=== PATIENT | male | born 1975 | race Caucasian/White ===

== ENCOUNTER 2019-08-16 13:18 | Inpatient (IN) | payer BC ==
[2019-08-16 17:08] VITALS: BMI 22.1
[2019-08-16] MEDS ORDERED: ACETAMINOPHEN TAB 325 MG TAB PO PRN (17:33)
[2019-08-16] MEDS ORDERED: NALOXONE 0.4 MG/ML 1 ML VIAL IV PRN (17:33)
[2019-08-16 18:07] LABS: Glucose,Whole Blood 100 mg/dL (75-99)
--- NOTE | 2019-08-16 18:47 | CT ---
EXAMINATION TYPE: CT abdomen pelvis w con DATE OF EXAM: 08/16/2019 COMPARISON: None HISTORY: Pelvic pain, nausea. Umbilical hernia, possible bowel obstruction. CT DLP: 729 mGycm Automated exposure control for dose reduction was used. TECHNIQUE: Helical acquisition of images was performed from the lung bases through the pelvis. CONTRAST: Performed with Oral Contrast and with IV Contrast, patient injected with 100 mL of Isovue 300. FINDINGS: Lung bases are clear. There is no pleural effusion. Heart size is normal. There is no pericardial eff usion. There are small less than 1 cm cyst in the liver. Gallbladder appears normal. Spleen appears normal. There is no pancreatic mass. Stomach is intact. There is no adrenal mass. Kidneys show satisfactory contrast opacification. There is no hydronephrosi s. There is broad-based umbilical hernia that contains omental fat with minimal fat stranding. The op ening is 2.5 cm. Bladder is almost empty. There is no evidence of a pelvic mass. There is no inguinal hernia. There is no free fluid in the pelvis. Appendix is not definitely seen. There is no sign of thickened appendix . Lumbar vertebra have normal alignment. Posterior elements are intact. There is no compression fract ure. Bony pelvis is intact. IMPRESSION: THERE IS UMBILICAL HERNIA WITH SOME INCARCERATED OMENTAL FAT AND MINIMAL FAT STRANDING THAT COULD REL ATE TO SOME MILD INFLAMMATORY REACTION. OTHERWISE NEGATIVE EXAM.
[2019-08-16 19:07] LABS: Basophils # (A) 0.1 k/uL (0-0.2); Basophils % (A) 1 %; Eosinophils # (A) 0.2 k/uL (0-0.7); Eosinophils % (A) 3 %; HCT 40.6 % (39.0-53.0); HGB 13.9 gm/dL (13.0-17.5); Lymphocytes # (A) 1.5 k/uL (1.0-4.8); Lymphocytes % (A) 27 %; MCH 31.6 pg (25.0-35.0); MCHC 34.3 g/dL (31.0-37.0); MCV 92.2 fL (80.0-100.0); Monocytes # (A) 0.2 k/uL (0-1.0); Monocytes % (A) 4 %; Neutrophils # (A) 3.3 k/uL (1.3-7.7); Neutrophils % (A) 62 %; Platelet Count 219 k/uL (150-450); RDW 12.5 % (11.5-15.5); WBC 5.3 k/uL (3.8-10.6)
[2019-08-16 19:16] LABS: ALT 18 U/L (21-72); AST 17 U/L (17-59); African American GFR (CKD) >90 (>60 ml/min/1.73 sqM); Albumin 3.8 g/dL (3.5-5.0); Alkaline Phosphatase 61 U/L (38-126); Anion Gap 7 mmol/L; Blood Urea Nitrogen 13 mg/dL (9-20); Calcium 9.1 mg/dL (8.4-10.2); Carbon Dioxide 28 mmol/L (22-30); Chloride 100 mmol/L (98-107); Glucose 116 mg/dL (74-99); Potassium 3.7 mmol/L (3.5-5.1); Sodium 135 mmol/L (137-145); Total Bilirubin 0.3 mg/dL (0.2-1.3); Total Protein 6.5 g/dL (6.3-8.2)
[2019-08-16] MEDS: SODIUM CHLORIDE 0.9% 1,000 ML IV SCH ×2 (21:41→23:36)
[2019-08-17] MEDS: SODIUM CHLORIDE 0.9% 1,000 ML IV SCH (09:14)
[2019-08-17] MEDS: KETOROLAC 30 MG/ML 1 ML VIAL IVP PRN (09:14)
[2019-08-17] MEDS ORDERED: fentaNYL PCA 500 MCG/50 ML BAG IV PRN (09:24)
[2019-08-17] MEDS ORDERED: NALOXONE 0.4 MG/ML 1 ML VIAL IV PRN (09:24)
[2019-08-17] MEDS ORDERED: LACTULOSE 20 GM/30 ML CUP PO ONE (09:30)
[2019-08-17] MEDS: DOCUSATE 100 MG CAP PO SCH ×2 (09:40→19:58)
[2019-08-17] MEDS: MAGNESIUM HYDROXIDE 2,400 MG/10 ML CUP PO SCH ×3 (09:41→19:59)
[2019-08-17] MEDS ORDERED: ACETAMINOPHEN IV (For NPO) 1,000 MG in EMPTY BAG 1 BAG IVPB ONE (10:00)
[2019-08-17] MEDS ORDERED: ONDANSETRON 4 MG/2 ML VIAL IVP PRN (10:10)
[2019-08-17] MEDS ORDERED: diphenhydrAMINE 50 MG/ML 1 ML VIAL IVP PRN (10:10)
[2019-08-17] MEDS: METOCLOPRAMIDE 5 MG/ML 2 ML VIAL IVP SCH ×2 (11:59→17:23)
--- NOTE | 2019-08-17 13:07 | P.GSHP ---
History of Present Illness H&P Date: 08/16/19 CHIEF COMPLAINT: Bowel obstruction HISTORY OF PRESENT ILLNESS: The patient is a 43 year old male who presents to me first time in consultation after having severe abdominal pain along the periumbilical area from a prior open umbilical hernia repair performed at [facility] 2+ years ago. He reports inability to pass flatus including severe abdominal distention and abdominal pain ongoing for the last 2-3 days. In general, he reports recurrent ventral hernia over the last 2-3 months. It affects his activities of daily living. "The pain is unbearable." He takes medicinal marijuana for pain control. He reports intermittent nausea and vomiting. Reports severe constipation secondary to his umbilical hernia lasting over 3+ weeks since his last bowel movement. He denies any alleviating factors other medicinal marijuana. Reports difficulty with movement and lifting was exacerbates his abdominal pain. No reports of blood in stools. PAST MEDICAL HISTORY: See list. PAST SURGICAL HISTORY: See list. MEDICATIONS: See list. ALLERGIES: See list. SOCIAL HISTORY: See list. FAMILY HISTORY: See list. REVIEW OF ORGAN SYSTEMS: CONSTITUTIONAL: No fevers or chills. Has unintentional weight loss over 10 pounds in 5 months. EYES: Denies any trouble with vision. No glasses. HEENT: No difficulties with hearing. No nosebleeds. No difficulty swallowing. RESPIRATORY: Denies pneumonia. Denies any troubles with breathing or dyspnea on exertion. CARDIOVASCULAR: Denies any chest pain, palpitations, or recent heart attacks. GASTROINTESTINAL: Denies fatty food intolerance. Has in bowel habits and gas bloat. Has severe constipation. GENITOURINARY: Denies any blood in urine or increased urinary frequency. NEUROLOGICAL: Denies any numbness or tingling along the distal extremities. No seizure disorders or headaches. MUSCULOSKELETAL: Has back pain, stiffness or joint arthritis. SKIN: No current skin cancer. No rash. PSYCHIATRIC: Denies current depression or suicidal thoughts. ENDOCRINE: Denies current thyroid disorders. Denies any blood sugar glucose intolerance. HEME/LYMPHATIC: Denies any lumps and bumps around the neck. No recent deep venous thrombosis. ALLERGY/IMMUNOLOGY: No immunoglobulin therapy. No immune deficiencies. BREAST: Denies current breast lumps, pain or nipple discharge. PHYSICAL EXAM: VITALS: Reviewed CONSTITUTIONAL: Well developed and in no acute distress. EYES: Conjuctivae without sclera icterus. Pupils are equally round and reactive to light. Extraocular movements grossly intact. HEAD, EARS, NOSE, THROAT: Moist buccal mucosa. Head is atraumatic, normocephalic. Hears conversational speech. No nasal drainage. NECK: Supple. No JV distention. No thyroidomegaly. RESPIRATORY: Non-labored respirations and equal bilateral excursions. No gross wheezes. CARDIOVASCULAR: Regular rate and rhythm. Extremities without moderate edema. Palpable 2+ radial pulses. ABDOMEN: Soft. Present distention. Tender periumbilical with transverse incision with recurrent incarcerated ventral hernia. No peritonitis LYMPH: No neck lymphadenopathy. No axillary lymphadenopathy. MUSCULOSKELETAL: Gait within normal limits. Range of motion bilateral upper extremities within normal limits. Nail and fingers with good capillary refill. SKIN: Warm and well perfused with good skin turgor. NEUROLOGIC: Cranial nerves I through XII grossly intact. Sensation upper and extremities intact. No focal or lateralizing signs. PSYCH: Appropriate affect. Alert and oriented to person, place and time. Displays appropriate insight. ASSESSMENT: 1. Recurrent ventral hernia with bowel obstruction PLAN: 1. Recommend immediate full inpatient admission to the hospital for bowel obstruction and recurrent ventral hernia 2. Will need CT of the abdomen and pelvis for involvement of small bowel with recurrent hernia 3. He is increased risk for perioperative complications with acute bowel obstruction including recurrent hernia and active marijuana use 4. Twelve-lead EKG advised 5. Full inpatient hospitalization anticipated more than 2 nights 6. Ventral hernia repair while inpatient advice for recurrent ventral hernia with bowel obstruction 7. Recommend CBC, CMP labs 8. DVT prophylaxis 9. Patient is being sent from the office to the hospital for direct inpatient admission Thank you for this kind consultation. Past Medical History Past Medical History: Hypertension History of Any Multi-Drug Resistant Organisms: None Reported Past Surgical History: Hernia Repair Past Anesthesia/Blood Transfusion Reactions: No Reported Reaction Past Psychological History: Anxiety Smoking Status: Former smoker - Past Family History Mother Family Medical History: CVA/TIA Additional Family Medical History / Comment(s): Aorta transplant Father Family Medical History: Myocardial Infarction ([place]) Medications and Allergies Home Medications Medication Instructions Recorded Confirmed Type DULoxetine HCL [Cymbalta] 60 mg PO DAILY 08/16/19 08/16/19 History Omeprazole 20 mg PO DAILY 08/16/19 08/16/19 History Allergies Allergy/AdvReac Type Severity Reaction Status Date / Time hydrocodone [From Vicodin] Allergy Rash/Hives Verified 08/16/19 18:53 codeine AdvReac Nausea Verified 08/16/19 18:53 Surgical - Exam Vital Signs Temp Pulse Resp BP Pulse Ox 97.8 F 87 18 123/77 98 08/16/19 16:47 08/16/19 16:47 08/16/19 16:47 08/16/19 16:47 08/16/19 16:47 Results - Labs 08/16/19 18:37 08/16/19 18:37 Abnormal Lab Results - Last 24 Hours (Table) 08/16/19 08/16/19 Range/Units 18:05 18:37 Sodium 135 L (137-145) mmol/L Glucose 116 H (74-99) mg/dL POC Glucose (mg/dL) 100 H (75-99) mg/dL ALT 18 L (21-72) U/L Diabetes panel 08/16/19 Range/Units 18:37 Sodium 135 L (137-145) mmol/L Potassium 3.7 (3.5-5.1) mmol/L Chloride 100 (98-107) mmol/L Carbon Dioxide 28 (22-30) mmol/L BUN 13 (9-20) mg/dL Creatinine 0.82 (0.66-1.25) mg/dL Glucose 116 H (74-99) mg/dL Calcium 9.1 (8.4-10.2) mg/dL AST 17 (17-59) U/L ALT 18 L (21-72) U/L Alkaline Phosphatase 61 (38-126) U/L Total Protein 6.5 (6.3-8.2) g/dL Albumin 3.8 (3.5-5.0) g/dL Calcium panel 08/16/19 Range/Units 18:37 Calcium 9.1 (8.4-10.2) mg/dL Albumin 3.8 (3.5-5.0) g/dL Pituitary panel 08/16/19 Range/Units 18:37 Sodium 135 L (137-145) mmol/L Potassium 3.7 (3.5-5.1) mmol/L Chloride 100 (98-107) mmol/L Carbon Dioxide 28 (22-30) mmol/L BUN 13 (9-20) mg/dL Creatinine 0.82 (0.66-1.25) mg/dL Glucose 116 H (74-99) mg/dL Calcium 9.1 (8.4-10.2) mg/dL Adrenal panel 08/16/19 Range/Units 18:37 Sodium 135 L (137-145) mmol/L Potassium 3.7 (3.5-5.1) mmol/L Chloride 100 (98-107) mmol/L Carbon Dioxide 28 (22-30) mmol/L BUN 13 (9-20) mg/dL Creatinine 0.82 (0.66-1.25) mg/dL Glucose 116 H (74-99) mg/dL Calcium 9.1 (8.4-10.2) mg/dL Total Bilirubin 0.3 (0.2-1.3) mg/dL AST 17 (17-59) U/L ALT 18 L (21-72) U/L Alkaline Phosphatase 61 (38-126) U/L Total Protein 6.5 (6.3-8.2) g/dL Albumin 3.8 (3.5-5.0) g/dL Assessment and Plan (1) Small bowel obstruction Current Visit: Yes Status: Acute Code(s): K56.609 - UNSP INTESTNL OBST, UNSP TO PARTIAL VERSUS COMPLETE OBST SNOMED Code(s): 844976439 (2) Recurrent ventral hernia with obstruction Current Visit: Yes Status: Acute Code(s): K43.0 - INCISIONAL HERNIA WITH OBSTRUCTION, WITHOUT GANGRENE SNOMED Code(s): 040217466 (3) Chronic pain syndrome Current Visit: Yes Status: Acute Code(s): G89.4 - CHRONIC PAIN SYNDROME SNOMED Code(s): 081761787 (4) Marijuana use Current Visit: Yes Status: Acute Code(s): F12.90 - CANNABIS USE, UNSPECIFIED, UNCOMPLICATED SNOMED Code(s): 518010478
--- NOTE | 2019-08-17 15:53 | P.PN ---
Subjective Progress Note Date: 08/17/19 CHIEF COMPLAINT: Bowel obstruction HISTORY OF PRESENT ILLNESS: The patient is a 43 year old male who presented to the office yesterday with intractable abdominal pain including features of small bowel obstruction as well as recurrent incarcerated ventral hernia. He reports his disappointment in his nursing care from overnight where he was misinformed regarding the date of the surgery including poor pain management and management for nausea as well. I was not notified overnight regarding any of his concerns. This morning, he is accompanied by his where he was seeking to leave AGAINST MEDICAL ADVICE. Myself including his present nurse and nurse practitioner were at bedside to hear all of his concerns. I did review his clinical findings with his computed tomography scan. Additionally, patient reports poor pain control as he has intolerance to oral pain tablets. He was given the option for discharge with outpatient follow-up versus remain inpatient and undergo surgery for repair of his incarcerated ventral hernia. Separately, he reports severe constipation. He also reports medicinal marijuana to control his pain. ROS: Denies any current nausea or vomiting. Denies chest pain. No shortness of breath. PHYSICAL EXAM: VITALS: Reviewed CONSTITUTIONAL: Well developed and in no acute distress. EYES: Conjuctivae without sclera icterus. Pupils are equally round and reactive to light. Extraocular movements grossly intact. HEAD, EARS, NOSE, THROAT: Moist buccal mucosa. Head is atraumatic, normocephalic. Hears conversational speech. No nasal drainage. NECK: Supple. No JV distention. No thyroidomegaly. RESPIRATORY: Non-labored respirations and equal bilateral excursions. No gross wheezes. CARDIOVASCULAR: Regular rate and rhythm. Extremities without moderate edema. Palpable 2+ radial pulses. ABDOMEN: Soft. Tender periumbilical without skin changes or peritonitis. MUSCULOSKELETAL: Nail and fingers with good capillary refill. SKIN: Warm and well perfused with good skin turgor. NEUROLOGIC: Cranial nerves I through XII grossly intact. Sensation upper and ex tremities intact. No focal or lateralizing signs. PSYCH: Appropriate affect. Alert and oriented to person, place and time. Displays appropriate insight. LABS: Reviewed. White blood cell count normal. Hemoglobin normal. STUDIES: CT of the abdomen and pelvis independently reviewed demonstrating no large bowel obstruction. Fat-containing ventral hernia identified. No free air. EKG: Normal sinus rhythm. ASSESSMENT: 1. Recurrent ventral hernia 2. Intractable abdominal pain PLAN: 1. He was given options regarding discharge versus inpatient hospitalization as his computed tomography scan confirms no closed loop obstruction and recurrent ventral hernia repair with fat. ADDENDUM: After family discussion, patient opted to continue his hospitalization. He has been placed on cathartics including anesthesia consultation for complex pain management and ventral hernia repair tomorrow Objective - Vital Signs Vital signs: Vital Signs Temp 98.1 F 08/17/19 14:43 Pulse 73 08/17/19 14:43 Resp 16 08/17/19 14:43 BP 101/63 08/17/19 14:43 Pulse Ox 97 08/17/19 14:43 Intake & Output 08/16/19 08/17/19 08/17/19 18:59 06:59 18:59 Intake Total 1500 Output Total 500 Balance -500 1500 Weight 68.039 kg 68.039 kg Intake: Intake, IV Titration 700 Amount Sodium Chloride 0.9% 1, 700 000 ml @ 100 mls/hr IV . Q10H KIRSTIN Rx#:[id number] Oral 800 Output: Urine 500 Other: # Voids 1 3 - Labs CBC & Chem 7: 08/16/19 18:37 08/16/19 18:37 Labs: Abnormal Lab Results - Last 24 Hours (Table) 08/16/19 08/16/19 Range/Units 18:05 18:37 Sodium 135 L (137-145) mmol/L Glucose 116 H (74-99) mg/dL POC Glucose (mg/dL) 100 H (75-99) mg/dL ALT 18 L (21-72) U/L Assessment and Plan (1) Small bowel obstruction Current Visit: Yes Status: Acute Code(s): K56.609 - UNSP INTESTNL OBST, UNSP TO PARTIAL VERSUS COMPLETE OBST SNOMED Code(s): 739563566 (2) Recurrent ventral hernia with obstruction Current Visit: Yes Status: Acute Code(s): K43.0 - INCISIONAL HERNIA WITH OBSTRUCTION, WITHOUT GANGRENE SNOMED Code(s): 166263717 (3) Chronic pain syndrome Current Visit: Yes Status: Acute Code(s): G89.4 - CHRONIC PAIN SYNDROME SNOMED Code(s): 193531712 (4) Marijuana use Current Visit: Yes Status: Acute Code(s): F12.90 - CANNABIS USE, UNSPECIFIED, UNCOMPLICATED SNOMED Code(s): 248063913
[2019-08-18] MEDS: METOCLOPRAMIDE 5 MG/ML 2 ML VIAL IVP SCH ×5 (01:26→23:49)
[2019-08-18] MEDS: SODIUM CHLORIDE 0.9% 1,000 ML IV SCH ×3 (01:28→21:10)
[2019-08-18] MEDS: LACTATED RINGERS 1,000 ML IV SCH (08:05)
[2019-08-18] MEDS: DOCUSATE 100 MG CAP PO SCH ×2 (08:05→21:18)
[2019-08-18] MEDS: MAGNESIUM HYDROXIDE 2,400 MG/10 ML CUP PO SCH ×2 (08:05→21:35)
[2019-08-18] MEDS ORDERED: IV FLUID CONTINUATION 1,000 ML IV ONE (16:24)
[2019-08-18] MEDS ORDERED: DEXAMETHASONE SOD PHOSPHATE 10 MG/ML 1 ML VIAL IV ONE (16:47)
--- NOTE | 2019-08-18 17:05 | P.HPADDEND ---
H&P Addendum H&P Addendum Date: 08/18/19 Benefits and risks of robotic ventral hernia described. All questions addressed. Postoperative pain management also reviewed. We'll proceed with robotic ventral hernia repair
[2019-08-18] MEDS ORDERED: fentaNYL (PF) 50 MCG/ML 2 ML AMP ONE (17:20)
[2019-08-18] MEDS ORDERED: ROCURONIUM BROMIDE 10 MG/ML 10 ML VIAL IV ONE (17:20)
[2019-08-18] MEDS ORDERED: MIDAZOLAM 2 MG/2 ML VIAL ONE (17:20)
[2019-08-18] MEDS ORDERED: GLYCOPYRROLATE 0.2 MG/ML 2 ML VIAL ONE (17:20)
[2019-08-18] MEDS ORDERED: SUCCINYLCHOLINE CHLORIDE 100 MG/5 ML SYR IV ONE (17:20)
[2019-08-18] MEDS ORDERED: NEOSTIGMINE 1 MG/ML 10 ML VIAL ONE (17:20)
[2019-08-18] MEDS ORDERED: HYDROmorphone (PF) 1 MG/ML ONE (17:20)
[2019-08-18] MEDS ORDERED: LIDOCAINE 1% INJ 10MG/ML (20 ML MDV) ONE (17:20)
[2019-08-18] MEDS ORDERED: PROPOFOL 10 MG/ML 20 ML VIAL IV ONE (17:20)
[2019-08-18] MEDS ORDERED: LIDOCAINE 1%-EPI 1:100,000 20 ML VIAL SQ ONE ×2 (17:36→17:51)
[2019-08-18] MEDS ORDERED: LACTATED RINGERS 1,000 ML IV ONE (18:30)
[2019-08-18] MEDS ORDERED: HYDROmorphone 1 MG/ML 1 ML SYRINGE IVP PRN (19:22)
[2019-08-18] MEDS ORDERED: diphenhydrAMINE 50 MG/ML 1 ML VIAL IVP PRN (19:24)
--- NOTE | 2019-08-18 19:30 | P.OP ---
Date of Procedure: 08/18/19 Description of Procedure: SURGEON: VICTOR HUGO SWAIN MD PREOPERATIVE DIAGNOSES: 1. Recurrent incarcerated ventral hernia with bowel obstruction 2. Depressive disorder 3. Gastroesophageal reflux disease POSTOPERATIVE DIAGNOSES: 1. Recurrent incarcerated ventral hernia with bowel obstruction 2. Depressive disorder 3. Gastroesophageal reflux disease OPERATION: 1. Robotic-assisted da Vanna Xi laparoscopic repair of recurrent incarcerated ventral hernia 6-cm with mesh, ventralight ST mesh 11.4 cm ANESTHESIA: General with local ESTIMATED BLOOD LOSS: 5 mL. SPECIMENS: Incarcerated contents recurrent umbilical hernia COMPLICATIONS: None. INDICATIONS: The patient is a 43-year-old male who presents with bowel obstruction including recurrent ventral hernia status post open repair. Surgical intervention with laparoscopic versus robotic and open techniques were reviewed. Placement of mesh was also reviewed. Benefits and risks were thoroughly described. Informed consent was obtained. DESCRIPTION OF PROCEDURE: The patient was brought into the operating room and laid in supine position. After general induction, the abdomen had been prepped and draped in standard sterile fashion. Ioban draping was also placed. Prior to incision, a timeout protocol was confirmed with surgical team regarding the patient's name including procedures to be performed. The robot was primed prior to the procedure. A field block using local anesthetic was placed along hernia site including the proposed port sites. Initial incision was made with an #11 blade along the left upper quadrant. A 0 degree 5 mm laparoscopic trocar entry was performed and insufflated. Three 8 mm ports were placed along the right side abdominal wall under direct localization. The 5-mm port was exchanged for an 12 mm port. Placements of the ports were 15 cm from the target anatomy and 10 cm apart. The da Vanna Xi robot was previously primed, prepped and draped then docked along the right side of the patient. I then sat at the robot Da Vanna Xi console where working arms of the robot including Bovie cautery connected to robotic scissors, vessel sealer, needle taxi driver, and graspers placed by the diploma medical assistant. Incarcerated omental contents was found in the previous ventral hernia repair. Vessel sealer was used to resect the incarcerated tissue. After moderate dissection including lysis of adhesions over 30 minutes, 2 separate distinct defects of 3 cm were found at the incarcerated ventral hernia with total combined of 6 cm defect. The incarcerated tissue was incised and dissected free from the surrounding tissues. A 12 mm port was placed along the left upper quadrant for placement of the mesh and for sutures. The incarcerated contents was reduced as the peritoneal fat was cleaned from the abdominal wall. Next, hemostasis was checked with cautery. The hernia defect was oversewn using #1 2-0 VLOC with fascial imbrication x 3. Next, ventralight ST mesh 11.4 cm was placed with the rough side towards the abdominal wall. 2-0 VLOC 12 inch sutures were used to fixate the mesh. A final endoscopic imaging was obtained. All instruments and pneumoperitoneum were evacuated from the abdominal cavity. The da Vanna Xi robot was undocked from the patient. I re-scrubbed into the case for closure of incisions. The fascia of the 12-mm port was probed and less than 8-mm in size. The incisions were reapproximated using 4-0 Monocryl in an interrupted subcuticular fashion. Liquid glue was applied to the skin after cleansing the skin with normal saline and dilute hydrogen peroxide. An abdominal binder was placed. An umbilical dressing was placed prior. At the end of the procedure, needle, sponge, and instrument count had been verified correct by shipping technician. The patient was taken to the postanesthesia care unit in stable condition. FINDINGS: 1. Recurrent incarcerated ventral hernia
[2019-08-18] MEDS: HYDROmorphone 0.5 MG/0.5 ML SYRINGE IVP PRN ×4 (19:31→20:17)
--- NOTE | 2019-08-18 19:33 | P.PN ---
Progress Note - Text Progress Note Date: 08/18/19 To whom May concern: Dorina Atkinsonumacher has been present during Mr. Riley Valenzuela hospitalization from 08/17/2019 to 08/30/2019. With his extended need for recovery, her assistance in his care will be needed. Anticipated timeframe for his recovery at least 4 weeks until 09/17/2019. Regards, Malena Farmer MD, FACS
[2019-08-18] MEDS ORDERED: SODIUM CHLORIDE 0.9% 1,000 ML IV ONE (20:06)
[2019-08-18] MEDS ORDERED: KETOROLAC 30 MG/ML 1 ML VIAL IVP ONE (20:17)
[2019-08-18] MEDS: DEXAMETHASONE SOD PHOSPHATE 4 MG/ML 1 ML VIAL IV SCH (23:50)
[2019-08-19] MEDS: LACTATED RINGERS 1,000 ML IV SCH (01:29)
[2019-08-19] MEDS: KETOROLAC 30 MG/ML 1 ML VIAL IVP PRN ×2 (02:01→06:59)
[2019-08-19] MEDS: METOCLOPRAMIDE 5 MG/ML 2 ML VIAL IVP SCH (05:40)
[2019-08-19] MEDS: DEXAMETHASONE SOD PHOSPHATE 4 MG/ML 1 ML VIAL IV SCH (05:40)
[2019-08-19] MEDS ORDERED: PANTOPRAZOLE 40 MG/10 ML VIAL IVP ONE (05:58)
[2019-08-19] MEDS: SODIUM CHLORIDE 0.9% 1,000 ML IV SCH (06:08)
[2019-08-19] MEDS ORDERED: SUCRALFATE 1 GM TAB PO SCH (07:30)
[2019-08-19] MEDS ORDERED: SUCRALFATE 1 GM TAB PO ONE (07:30)
[2019-08-19] MEDS ORDERED: TAMSULOSIN 0.4 MG CAP.ER.24H PO SCH (08:30)
[2019-08-19 08:35] VITALS: BP 113/68; PULSE 76; RESP 18; TEMP 98.3
--- NOTE | 2019-08-19 08:48 | P.DS ---
Providers Date of admission: 08/16/19 16:18 Expected date of discharge: 08/19/19 Attending physician: Malena Farmer Consults: 08/17/19 09:27 Consult Physician Routine Consulting Provider: [facility] Consult Reason/Comments: Complex pain management Do you want consulting provider notified?: Yes Primary care physician: Stated None - Discharge Diagnosis(es) (1) Small bowel obstruction Current Visit: Yes Status: Acute (2) Recurrent ventral hernia with obstruction Current Visit: Yes Status: Acute (3) Chronic pain syndrome Current Visit: Yes Status: Acute (4) Marijuana use Current Visit: Yes Status: Acute (5) Constipated Current Visit: Yes Status: Acute (6) Bowel obstruction Current Visit: Yes Status: Acute Hospital Course: POSTOPERATIVE DIAGNOSES: 1. Recurrent incarcerated ventral hernia with bowel obstruction 2. Depressive disorder 3. Gastroesophageal reflux disease COURSE: The patient is a 43-year-old male who presented with small bowel obstruction including recurrent incarcerated ventral hernia. He was treated conservatively for his bowel obstruction and treated for severe constipation. He underwent robotic repair of incarcerated ventral hernia without sequelae. Prior to discharge pain management regimen was reviewed. Follow up in the office in 7 days advised. All questions were addressed. Procedures: OPERATION: 1. Robotic-assisted da Vanna Xi laparoscopic repair of recurrent incarcerated ventral hernia 6-cm with mesh, ventralight ST mesh 11.4 cm ANESTHESIA: General with local ESTIMATED BLOOD LOSS: 5 mL. SPECIMENS: Incarcerated contents recurrent umbilical hernia COMPLICATIONS: None. Patient Condition at Discharge: Good Plan - Discharge Summary Discharge Rx Participant: Yes New Discharge Prescriptions: New Tamsulosin [Flomax] 0.4 mg PO DAILY #5 cap.er.24h Naproxen 500 mg PO BID #30 tablet Acetaminophen Tab [Tylenol Tab] 500 mg PO Q6H PRN #30 tablet PRN Reason: Pain HYDROcodone/APAP 5-325MG [Nimitz 5-325] 1 tab PO Q4HR PRN 3 Days #18 tab PRN Reason: Pain Continue DULoxetine HCL [Cymbalta] 60 mg PO DAILY Omeprazole 20 mg PO DAILY Discharge Medication List DULoxetine HCL [Cymbalta] 60 mg PO DAILY 08/16/19 [History] Omeprazole 20 mg PO DAILY 08/16/19 [History] Acetaminophen Tab [Tylenol Tab] 500 mg PO Q6H PRN #30 tablet 08/18/19 [Rx] Naproxen 500 mg PO BID #30 tablet 08/18/19 [Rx] Tamsulosin [Flomax] 0.4 mg PO DAILY #5 cap.er.24h 08/18/19 [Rx] HYDROcodone/APAP 5-325MG [Nimitz 5-325] 1 tab PO Q4HR PRN 3 Days #18 tab 08/19/19 [Rx] Follow up Appointment(s)/Referral(s): Malena Farmer MD [STAFF PHYSICIAN] - 08/23/19 3:40 pm Patient Instructions/Handouts: Laparoscopic Herniorrhaphy (DC), Ventral Hernia Repair (DC) Activity/Diet/Wound Care/Special Instructions: No lifting for 4 pounds in 4 weeks, until Sep 17. May shower. No bathtub soaks for 2 weeks until 09/01/19. Wear abdominal binder daily for comfort except for showering. Use ice for pain. Discharge Disposition: HOME SELF-CARE
[2019-08-19] MEDS ORDERED: DULoxetine HCL 60 MG CAPSULE.DR PO SCH (09:00)
== END 2019-08-19 09:09 | disposition home or self-care (01) | DRG 355 ==
LOC: 4SSUR 16:18
PROVIDERS: ADMIT Surgery Plastic and Reconstructive Surgery; ATTEND Surgery Plastic and Reconstructive Surgery
PROC: 8E0W4CZ Robotic Assisted Procedure of Trunk Region, Percutaneous Endoscopic Approach (ICD-10-PCS; principal; 2019-08-16)
PROC: 0WUF4JZ Supplement Abdominal Wall with Synthetic Substitute, Percutaneous Endoscopic Approach (ICD-10-PCS; principal; 2019-08-16)
PROC: 3E0M45Z Introduction of Adhesion Barrier into Peritoneal Cavity, Percutaneous Endoscopic Approach (ICD-10-PCS; principal; 2019-08-16)
DX: K43.6 Other and unspecified ventral hernia with obstruction, without gangrene (principal); F32.9 Major depressive disorder, single episode, unspecified; F41.9 Anxiety disorder, unspecified; G89.4 Chronic pain syndrome; I10 Essential (primary) hypertension; K21.9 Gastro-esophageal reflux disease without esophagitis; Z79.899 Other long term (current) drug therapy; Z82.49 Family history of ischemic heart disease and other diseases of the circulatory system; Z87.891 Personal history of nicotine dependence; Z88.5 Allergy status to narcotic agent; K59.00 Constipation, unspecified
CPT/HCPCS: 74177; 80053; 85025; 88302; 93005

== ENCOUNTER 2019-09-18 07:51 | Observation (INO) | payer BC ==
[2019-09-18] MEDS ORDERED: SODIUM CHLORIDE 0.9% 1,000 ML IV STA ×2 (08:01)
--- NOTE | 2019-09-18 08:07 | ED ---
Abdominal Pain HPI - General Chief Complaint: Abdominal Pain Stated Complaint: Abd Pain Time Seen by Provider: 09/18/19 07:51 Source: patient, EMS, RN notes reviewed Mode of arrival: EMS Limitations: no limitations - History of Present Illness Initial Comments: This is a 43-year-old male with a history depression and GERD any recent ventral hernia repair after suffering a bowel obstruction from a incarcerated ventral hernia who presents today with complaints of severe lower abdominal pain especially in the left he is brought in by EMS. He states he was to have a colonoscopy done tomorrow in start the prep today but the pain was so bad he couldn't take it anymore. He states was 7/10 in severity he had nausea with it no vomiting does states had constipation recently. He does state because of his recent problems he's lost about 20 pounds. No other modifying factors at this time. He denies any dysuria hematuria MD Complaint: abdominal pain - Related Data Home Medications Medication Instructions Recorded Confirmed DULoxetine HCL [Cymbalta] 60 mg PO QAM 08/16/19 09/16/19 Omeprazole 20 mg PO DAILY 08/16/19 09/16/19 Allergies Allergy/AdvReac Type Severity Reaction Status Date / Time hydrocodone [From Vicodin] Allergy Rash/Hives Verified 09/18/19 07:58 codeine AdvReac Nausea Verified 09/18/19 07:58 Review of Systems ROS Statement: Those systems with pertinent positive or pertinent negative responses have been documented in the HPI. ROS Other: All systems not noted in ROS Statement are negative. Past Medical History Past Medical History: Hypertension Additional Past Medical History / Comment(s): recent admission abdominal pain History of Any Multi-Drug Resistant Organisms: None Reported Past Surgical History: Hernia Repair Additional Past Surgical History / Comment(s): hernia surgery x2,cyst removal Past Anesthesia/Blood Transfusion Reactions: Family History of Problems w/ Anesthesia, Postoperative Nausea & Vomiting (PONV) Additional Past Anesthesia/Blood Transfusion Reaction / Comment(s): mom has a hard time coming out of anesthesia "real droggy for a couple days afterward" Past Psychological History: Anxiety Smoking Status: Former smoker Past Alcohol Use History: None Reported Past Drug Use History: Marijuana - Past Family History Mother Family Medical History: CVA/TIA Additional Family Medical History / Comment(s): Aorta transplant Father Family Medical History: Myocardial Infarction ([place]) General Exam - General Exam Comments Initial Comments: This is a well-developed well-nourished awake alert oriented times 3 male Limitations: no limitations General appearance: alert, anxious Head exam: Present: atraumatic, normocephalic, normal inspection Eye exam: Present: normal appearance, PERRL, EOMI. Absent: scleral icterus, conjunctival injection, periorbital swelling ENT exam: Present: mucous membranes dry Neck exam: Present: normal inspection. Absent: tenderness, meningismus, lymphadenopathy Respiratory exam: Present: normal lung sounds bilaterally. Absent: respiratory distress, wheezes, rales, rhonchi, stridor Cardiovascular Exam: Present: regular rate, normal rhythm, normal heart sounds. Absent: systolic murmur, diastolic murmur, rubs, gallop, clicks GI/Abdominal exam: Present: soft, tenderness (Some left lower quadrant tenderness palpation no guarding at this time rebound the surgical incision sites appear to be healing well with no evidence of any wound dehiscence or infectious process), normal bowel sounds. Absent: distended, guarding, rebound, rigid Extremities exam: Present: normal inspection, full ROM, normal capillary refill. Absent: tenderness, pedal edema, joint swelling, calf tenderness Back exam: Present: normal inspection Neurological exam: Present: alert, oriented X3, CN II-XII intact Psychiatric exam: Present: normal affect, normal mood Skin exam: Present: warm, dry, intact, normal color. Absent: rash Course Vital Signs 09/18/19 07:58 Temperature 97.6 F Pulse Rate 68 Respiratory 18 Rate Blood Pressure 106/74 O2 Sat by Pulse 96 Oximetry Medical Decision Making - Medical Decision Making I did discuss findings with the patient still having abdominal pain at did discuss case with Dr. Maurice. Patient will be admitted and a CT with IV and oral contrast will be performed. - Lab Data Result diagrams: 09/18/19 08:10 09/18/19 08:10 Lab Results 09/18/19 09/18/19 09/18/19 Range/Units 08:10 08:10 08:10 WBC 8.4 (3.8-10.6) k/uL RBC 4.42 (4.30-5.90) m/uL Hgb 14.3 (13.0-17.5) gm/dL Hct 40.3 (39.0-53.0) % MCV 91.2 (80.0-100.0) fL MCH 32.2 (25.0-35.0) pg MCHC 35.3 (31.0-37.0) g/dL RDW 12.5 (11.5-15.5) % Plt Count 226 (150-450) k/uL Neutrophils % 74 % Lymphocytes % 14 % Monocytes % 6 % Eosinophils % 4 % Basophils % 1 % Neutrophils # 6.2 (1.3-7.7) k/uL Lymphocytes # 1.2 (1.0-4.8) k/uL Monocytes # 0.5 (0-1.0) k/uL Eosinophils # 0.3 (0-0.7) k/uL Basophils # 0.1 (0-0.2) k/uL Sodium 139 (137-145) mmol/L Potassium 3.6 (3.5-5.1) mmol/L Chloride 105 (98-107) mmol/L Carbon Dioxide 28 (22-30) mmol/L Anion Gap 6 mmol/L BUN 15 (9-20) mg/dL Creatinine 0.75 (0.66-1.25) mg/dL Est GFR (CKD-EPI)AfAm >90 (>60 ml/min/1.73 sqM) Est GFR (CKD-EPI)NonAf >90 (>60 ml/min/1.73 sqM) Glucose 106 H (74-99) mg/dL Plasma Lactic Acid Tejinder 1.4 (0.7-2.0) mmol/L Calcium 9.0 (8.4-10.2) mg/dL Total Bilirubin 0.4 (0.2-1.3) mg/dL AST 18 (17-59) U/L ALT 17 L (21-72) U/L Alkaline Phosphatase 76 (38-126) U/L Creatine Kinase 68 (55-170) U/L Troponin I (0.000-0.034) ng/mL Total Protein 6.9 (6.3-8.2) g/dL Albumin 3.9 (3.5-5.0) g/dL Amylase 48 (30-110) U/L Lipase 56 (23-300) U/L 09/18/19 Range/Units 08:10 WBC (3.8-10.6) k/uL RBC (4.30-5.90) m/uL Hgb (13.0-17.5) gm/dL Hct (39.0-53.0) % MCV (80.0-100.0) fL MCH (25.0-35.0) pg MCHC (31.0-37.0) g/dL RDW (11.5-15.5) % Plt Count (150-450) k/uL Neutrophils % % Lymphocytes % % Monocytes % % Eosinophils % % Basophils % % Neutrophils # (1.3-7.7) k/uL Lymphocytes # (1.0-4.8) k/uL Monocytes # (0-1.0) k/uL Eosinophils # (0-0.7) k/uL Basophils # (0-0.2) k/uL Sodium (137-145) mmol/L Potassium (3.5-5.1) mmol/L Chloride (98-107) mmol/L Carbon Dioxide (22-30) mmol/L Anion Gap mmol/L BUN (9-20) mg/dL Creatinine (0.66-1.25) mg/dL Est GFR (CKD-EPI)AfAm (>60 ml/min/1.73 sqM) Est GFR (CKD-EPI)NonAf (>60 ml/min/1.73 sqM) Glucose (74-99) mg/dL Plasma Lactic Acid Tejinder (0.7-2.0) mmol/L Calcium (8.4-10.2) mg/dL Total Bilirubin (0.2-1.3) mg/dL AST (17-59) U/L ALT (21-72) U/L Alkaline Phosphatase (38-126) U/L Creatine Kinase (55-170) U/L Troponin I <0.012 (0.000-0.034) ng/mL Total Protein (6.3-8.2) g/dL Albumin (3.5-5.0) g/dL Amylase (30-110) U/L Lipase (23-300) U/L - Radiology Data Radiology results: report reviewed (I did review the imaging and report no acute findings seen), image reviewed Disposition Clinical Impression: Abdominal pain Disposition: ADMITTED IP TO THIS [facility] Condition: Fair Referrals: Sunil Moon MD [Primary Care Provider] - 1-2 days
[2019-09-18 08:30] LABS: Basophils # (A) 0.1 k/uL (0-0.2); Basophils % (A) 1 %; Eosinophils # (A) 0.3 k/uL (0-0.7); Eosinophils % (A) 4 %; HCT 40.3 % (39.0-53.0); HGB 14.3 gm/dL (13.0-17.5); Lymphocytes # (A) 1.2 k/uL (1.0-4.8); Lymphocytes % (A) 14 %; MCH 32.2 pg (25.0-35.0); MCHC 35.3 g/dL (31.0-37.0); MCV 91.2 fL (80.0-100.0); Mean Platelet Volume 7.6; Monocytes # (A) 0.5 k/uL (0-1.0); Monocytes % (A) 6 %; Neutrophils # (A) 6.2 k/uL (1.3-7.7); Neutrophils % (A) 74 %; Platelet Count 226 k/uL (150-450); RBC 4.42 m/uL (4.30-5.90); RDW 12.5 % (11.5-15.5); WBC 8.4 k/uL (3.8-10.6)
[2019-09-18 08:34] LABS: ALT 17 U/L (21-72); AST 18 U/L (17-59); African American GFR (CKD) >90 (>60 ml/min/1.73 sqM); Albumin 3.9 g/dL (3.5-5.0); Alkaline Phosphatase 76 U/L (38-126); Amylase 48 U/L (30-110); Anion Gap 6 mmol/L; Blood Urea Nitrogen 15 mg/dL (9-20); Carbon Dioxide 28 mmol/L (22-30); Chloride 105 mmol/L (98-107); Creatine Kinase 68 U/L (55-170); Glucose 106 mg/dL (74-99); Non-African American GFR(CKD) >90 (>60 ml/min/1.73 sqM); Potassium 3.6 mmol/L (3.5-5.1); Sodium 139 mmol/L (137-145); Total Bilirubin 0.4 mg/dL (0.2-1.3); Total Protein 6.9 g/dL (6.3-8.2)
--- NOTE | 2019-09-18 08:38 | XR ---
EXAMINATION TYPE: XR KUB , 2 VIEWS DATE OF EXAM ORDERED: 09/18/2019 HISTORY: Abdominal pain and constipation. COMPARISON: None. FINDINGS: The lung bases are clear. The abdominal gas pattern is normal. There is no evidence of obstruction or free air. No unusual calc ifications are seen. IMPRESSION: NO ACUTE INTRA-ABDOMINAL ABNORMALITY.
[2019-09-18] MEDS ORDERED: NALOXONE 0.4 MG/ML 1 ML VIAL IV PRN (09:28)
[2019-09-18] MEDS ORDERED: ONDANSETRON 4 MG/2 ML VIAL IVP PRN (09:28)
[2019-09-18] MEDS ORDERED: IOPAMIDOL CONTRAST (ORAL USE) VIAL PO PRN (09:32)
[2019-09-18 11:06] LABS: Appearance,Urine Clear (Clear); Bilirubin,Urine Negative (Negative); Blood,Urine Negative (Negative); Color,Urine Colorless; Glucose,Urine (UA) Negative (Negative); Ketones,Urine Negative (Negative); Leukocyte Esterase,Urine Negative (Negative); Nitrite,Urine Negative (Negative); PH, Urine 6.5 (5.0-8.0); Protein,Urine Negative (Negative); Specific Gravity,Urine 1.001 (1.001-1.035); Urobilinogen,Urine <2.0 mg/dL (<2.0)
--- NOTE | 2019-09-18 13:05 | CT ---
EXAMINATION TYPE: CT abdomen pelvis w con DATE OF EXAM: 09/18/2019 REFERENCE: Previous study dated 08/16/2019. HISTORY: Abdominal pain HISTORY: Abdominal pain CT DLP: 819.2 mGy Automated exposure control for dose reduction was used. TECHNIQUE: Helical acquisition through the abdomen and pelvis was obtained following the oral ingesti on of with Oral Contrast and following intravenous administration of 100 mL of Isovue 300. The data w as reformatted in axial, coronal and sagittal projections. FINDINGS: Visualized portions of the lungs are clear. There is no pleural or pericardial fluid. The heart is not enlarged. There is a small, sliding hiatal hernia. Within the abdomen, the liver, spleen and gallbladder are normal. Both adrenal glands are normal. Pancreas is unremarkable. Both kidneys demonstrate function and are morphologically normal. The pancreas is unremarkable. There is no significant retroperitoneal, iliac or inguinal adenopathy. The bladder is unremarkable. There is no significant diverticular change and there is no radiographic evidence of diverticulitis. The appendix appears normal. Small bowel loops are normal in caliber. There has been a repair of the patient's previous ventral hernia. No free fluid and no free air is seen. There is facet arthropathy in the lower lumbar spine. IMPRESSION: 1. INTERVAL REPAIR OF THE PATIENT'S VENTRAL HERNIA. 2. SMALL SLIDING HIATAL HERNIA. 3. MILD DEGENERATIVE CHANGE WITHIN THE LUMBAR SPINE.
[2019-09-18] MEDS: SODIUM CHLORIDE 0.9% 1,000 ML IV SCH ×3 (13:28→20:56)
[2019-09-18] MEDS ORDERED: KETOROLAC 30 MG/ML 1 ML VIAL IVP PRN (16:38)
--- NOTE | 2019-09-18 16:38 | P.GSHP ---
History of Present Illness H&P Date: 09/18/19 CHIEF COMPLAINT: Intractable abdominal pain HISTORY OF PRESENT ILLNESS: The patient is a 43 year old male well known to me from prior repair recurrent incarcerated ventral hernia over a month month ago. He has been doing well since his surgery. He reports that yesterday he developed acute onset left lower quadrant abdominal pain. He had mild patient to the right lower abdomen. He reports in the past taking Bentyl with some improvement of his symptoms. His pain is 7 out of 10. He reports when moving his hips, his pain would be aggravated. He was unable to pass any flatus. He is scheduled to undergo colonoscopy tomorrow. Secondary to severity of the pain including diaphoresis, he presented to the emergency room. No recent fevers or chills otherwise. PAST MEDICAL HISTORY: See list. PAST SURGICAL HISTORY: See list. MEDICATIONS: See list. ALLERGIES: See list. SOCIAL HISTORY: See list. FAMILY HISTORY: See list. REVIEW OF ORGAN SYSTEMS: CONSTITUTIONAL: No fevers or chills. EYES: Denies any trouble with vision. No glasses. HEENT: No difficulties with hearing. No nosebleeds. No difficulty swallowing. RESPIRATORY: Denies pneumonia. Denies any troubles with breathing or dyspnea on exertion. CARDIOVASCULAR: Denies any chest pain, palpitations, or recent heart attacks. GASTROINTESTINAL: Denies fatty food intolerance. Has in bowel habits and gas bloat. Has severe constipation. Gastroesophageal reflux disease. GENITOURINARY: Denies any blood in urine or increased urinary frequency. NEUROLOGICAL: Denies any numbness or tingling along the distal extremities. No seizure disorders or headaches. MUSCULOSKELETAL: Has back pain, stiffness or joint arthritis. SKIN: No current skin cancer. No rash. PSYCHIATRIC: Denies current depression or suicidal thoughts. ENDOCRINE: Denies current thyroid disorders. Denies any blood sugar glucose intolerance. HEME/LYMPHATIC: Denies any lumps and bumps around the neck. No recent deep venous thrombosis. ALLERGY/IMMUNOLOGY: No immunoglobulin therapy. No immune deficiencies. BREAST: Denies current breast lumps, pain or nipple discharge. PHYSICAL EXAM: VITALS: Reviewed CONSTITUTIONAL: Well developed and in no acute distress. EYES: Conjuctivae without sclera icterus. Pupils are equally round and reactive to light. Extraocular movements grossly intact. HEAD, EARS, NOSE, THROAT: Moist buccal mucosa. Head is atraumatic, normocephalic. Hears conversational speech. No nasal drainage. NECK: Supple. No JV distention. No thyroidomegaly. RESPIRATORY: Non-labored respirations and equal bilateral excursions. No gross wheezes. CARDIOVASCULAR: Regular rate and rhythm. Extremities without moderate edema. Palpable 2+ radial pulses. ABDOMEN: Soft. Peritonitis. Mild tenderness left lower quadrant. MUSCULOSKELETAL: Nail and fingers with good capillary refill. SKIN: Warm and well perfused with good skin turgor. NEUROLOGIC: Cranial nerves I through XII grossly intact. Sensation upper and extremities intact. No focal or lateralizing signs. PSYCH: Appropriate affect. Alert and oriented to person, place and time. Displays appropriate insight. LABS: WBC is normal STUDIES: The abdomen and pelvis independently reviewed demonstrating inflammation and or thickness of the descending colon to sigmoid colon. Findings suspicious of descending colitis. Also, small hiatal hernia identified. Moderate gaseous distention of the colon including small intestine identified. No recurrent ventral hernia identified with surgical changes REPORT: Confirms hiatal hernia including degenerative joint disease as well as recent ventral hernia repair ASSESSMENT: 1. Left lower quadrant abdominal pain 2. Descending colitis PLAN: 1. His CT of the abdomen and pelvis including clinical picture suspicious for descending colitis. 2. As his pain is still moderate to severe, agree with admission and treatment for descending colitis 3. Will proceed with colonoscopy as well as upper endoscopy for esophageal reflux disease and abdominal pain 4. Patient agreed to proceed with bowel prep Past Medical History Past Medical History: Hypertension Additional Past Medical History / Comment(s): recent admission abdominal pain History of Any Multi-Drug Resistant Organisms: None Reported Past Surgical History: Hernia Repair Additional Past Surgical History / Comment(s): hernia surgery x2,cyst removal Past Anesthesia/Blood Transfusion Reactions: Family History of Problems w/ Anesthesia, Postoperative Nausea & Vomiting (PONV) Additional Past Anesthesia/Blood Transfusion Reaction / Comment(s): mom has a hard time coming out of anesthesia "real droggy for a couple days afterward" Past Psychological History: Anxiety Smoking Status: Former smoker Past Alcohol Use History: None Reported Past Drug Use History: Marijuana - Past Family History Mother Family Medical History: CVA/TIA Additional Family Medical History / Comment(s): Aorta transplant Father Family Medical History: Myocardial Infarction ([place]) Medications and Allergies Home Medications Medication Instructions Recorded Confirmed Type DULoxetine HCL [Cymbalta] 60 mg PO QAM 08/16/19 09/18/19 History Omeprazole 20 mg PO DAILY 08/16/19 09/18/19 History Albuterol Inhaler [Ventolin Hfa 2 puff INHALATION RT-Q6H PRN 09/18/19 09/18/19 History Inhaler] Allergies Allergy/AdvReac Type Severity Reaction Status Date / Time hydrocodone [From Vicodin] Allergy Rash/Hives Verified 09/18/19 09:43 codeine AdvReac Nausea Verified 09/18/19 09:43 Surgical - Exam Vital Signs Temp Pulse Resp BP Pulse Ox 97.6 F 68 18 106/74 96 09/18/19 07:58 09/18/19 07:58 09/18/19 07:58 09/18/19 07:58 09/18/19 07:58 Results - Labs 09/18/19 08:10 09/18/19 08:10 Abnormal Lab Results - Last 24 Hours (Table) 09/18/19 Range/Units 08:10 Glucose 106 H (74-99) mg/dL ALT 17 L (21-72) U/L Diabetes panel 09/18/19 Range/Units 08:10 Sodium 139 (137-145) mmol/L Potassium 3.6 (3.5-5.1) mmol/L Chloride 105 (98-107) mmol/L Carbon Dioxide 28 (22-30) mmol/L BUN 15 (9-20) mg/dL Creatinine 0.75 (0.66-1.25) mg/dL Glucose 106 H (74-99) mg/dL Calcium 9.0 (8.4-10.2) mg/dL AST 18 (17-59) U/L ALT 17 L (21-72) U/L Alkaline Phosphatase 76 (38-126) U/L Total Protein 6.9 (6.3-8.2) g/dL Albumin 3.9 (3.5-5.0) g/dL Calcium panel 09/18/19 Range/Units 08:10 Calcium 9.0 (8.4-10.2) mg/dL Albumin 3.9 (3.5-5.0) g/dL Pituitary panel 09/18/19 Range/Units 08:10 Sodium 139 (137-145) mmol/L Potassium 3.6 (3.5-5.1) mmol/L Chloride 105 (98-107) mmol/L Carbon Dioxide 28 (22-30) mmol/L BUN 15 (9-20) mg/dL Creatinine 0.75 (0.66-1.25) mg/dL Glucose 106 H (74-99) mg/dL Calcium 9.0 (8.4-10.2) mg/dL Adrenal panel 09/18/19 Range/Units 08:10 Sodium 139 (137-145) mmol/L Potassium 3.6 (3.5-5.1) mmol/L Chloride 105 (98-107) mmol/L Carbon Dioxide 28 (22-30) mmol/L BUN 15 (9-20) mg/dL Creatinine 0.75 (0.66-1.25) mg/dL Glucose 106 H (74-99) mg/dL Calcium 9.0 (8.4-10.2) mg/dL Total Bilirubin 0.4 (0.2-1.3) mg/dL AST 18 (17-59) U/L ALT 17 L (21-72) U/L Alkaline Phosphatase 76 (38-126) U/L Total Protein 6.9 (6.3-8.2) g/dL Albumin 3.9 (3.5-5.0) g/dL Assessment and Plan (1) Colitis Current Visit: Yes Status: Acute Code(s): K52.9 - NONINFECTIVE GASTROENTERITIS AND COLITIS, UNSPECIFIED SNOMED Code(s): 73836688 (2) Left lower quadrant abdominal pain Current Visit: Yes Status: Acute Code(s): R10.32 - LEFT LOWER QUADRANT PAIN SNOMED Code(s): 281848575 (3) Gastro-esophageal reflux Current Visit: Yes Status: Acute Code(s): K21.9 - GASTRO-ESOPHAGEAL REFLUX DISEASE WITHOUT ESOPHAGITIS SNOMED Code(s): 097782446
[2019-09-18] MEDS ORDERED: PEG 3350-NA SULF,BICARB,CL/KCL 4,000 ML BOTTLE PO ONE (18:00)
[2019-09-18] MEDS: SIMETHICONE 80 MG CHEWABLE PO SCH ×2 (18:17→21:51)
[2019-09-18] MEDS ORDERED: ALBUTEROL NEBULIZED 2.5 MG/3 ML INHALATION PRN (19:43)
[2019-09-18] MEDS ORDERED: DULoxetine HCL 60 MG CAPSULE.DR PO SCH (19:45)
[2019-09-18] MEDS: HYOSCYAMINE ORAL DROPS 1.875 MG/15 ML BOTTLE PO SCH ×2 (20:54→23:24)
[2019-09-18] MEDS ORDERED: ACETAMINOPHEN TAB 325 MG TAB PO PRN (23:30)
[2019-09-19] MEDS: HYOSCYAMINE ORAL DROPS 1.875 MG/15 ML BOTTLE PO SCH ×2 (03:52→09:29)
[2019-09-19 07:27] VITALS: PULSE 59; RESP 15; TEMP 98.1
[2019-09-19] MEDS ORDERED: PANTOPRAZOLE 40 MG TABLET PO SCH (07:30)
[2019-09-19] MEDS ORDERED: PANTOPRAZOLE 40 MG/10 ML VIAL IV SCH (09:00)
[2019-09-19] MEDS: SIMETHICONE 80 MG CHEWABLE PO SCH (09:15)
[2019-09-19] MEDS: SODIUM CHLORIDE 0.9% 1,000 ML IV SCH (10:47)
[2019-09-19] MEDS ORDERED: PROPOFOL 10 MG/ML 20 ML VIAL IV ONE (12:10)
[2019-09-19] MEDS ORDERED: IV FLUID CONTINUATION 300 ML IV ONE (12:10)
[2019-09-19] MEDS ORDERED: LIDOCAINE 1% INJ 10MG/ML (20 ML MDV) ONE (12:10)
--- NOTE | 2019-09-19 12:19 | P.HPADDEND ---
H&P Addendum H&P Addendum Date: 09/19/19 Patient presented with epigastric including lower quadrant abdominal pain. Recommend upper and lower endoscopy.
--- NOTE | 2019-09-19 12:21 | P.PCN ---
Date of Procedure: 09/19/19 Description of Procedure: PREOPERATIVE DIAGNOSIS: Abnormal computed tomography scan with hiatal hernia Epigastric abdominal pain Gastroesophageal reflux disease POSTOPERATIVE DIAGNOSIS: Abnormal computed tomography scan with hiatal hernia Epigastric abdominal pain Gastroesophageal reflux disease Diaphragmatic hiatal hernia Gastritis OPERATION: Esophagogastroduodenoscopy with biopsies along antrum. SURGEON: Malena Farmer MD ANESTHESIA: MAC. INDICATIONS: The patient is a 43-year-old male who presents with a history of reflux disease. Benefits and risks of the procedure were described. Informed consent was obtained. DESCRIPTION: The patient was brought into the endoscopy suite and laid in the left lateral decubitus position. An Olympus gastroscope was passed along the posterior oropharynx down to the distal esophagus where the squamocolumnar junction was encountered at 37 cm from the incisors. The stomach was entered and no bile reflux was found. Additional findings are listed below. Biopsies with cold forceps were obtained of the antrum. The first through third portion of the duod enum was examined and unremarkable. Retroflexion of the scope confirmed Hill grade 4 lower esophageal valve. The squamocolumnar junction demonstrated LA grade B erosive esophagitis. The stomach was desufflated. The patient tolerated the procedure well. FINDINGS: Squamocolumnar junction 37 cm from the incisors. Diaphragmatic hiatus at 40 cm. Hiatal hernia, 3 cm Hill grade 4 lower esophageal valve. LA grade B erosive esophagitis. No active duodenitis. Chronic gastritis RECOMMENDATIONS: Upper endoscopy as needed.
--- NOTE | 2019-09-19 12:35 | P.PCN ---
Date of Procedure: 09/19/19 Description of Procedure: PREOPERATIVE DIAGNOSIS: Abnormal computed tomography scan for descending colitis Left lower quadrant abdominal pain Change in bowel habits POSTOPERATIVE DIAGNOSIS: Abnormal computed tomography scan for descending colitis Left lower quadrant abdominal pain Change in bowel habits Sigmoid diverticulosis Scattered diverticulosis External hemorrhoids OPERATION: Colonoscopy to the ileocecal valve and appendiceal orifice. SURGEON: Malena Farmer MD. ANESTHESIA: MAC. INDICATIONS: The patient is a 43-year-old male who presented with left lower quadrant and down pain including computed tomography scan suspicious for descending colitis. Benefits and risks were described and informed consent was obtained. DESCRIPTION OF PROCEDURE: The patient had undergone GoLytely prep. He had been brought into the operating room and laid in the left lateral decubitus position. After adequate intravenous sedation, the rectum was examined with 2% lidocaine jelly. External hemorrhoids were encountered. The rectal tone was within normal limits. No lesions were palpated in the rectal vault. An Olympus colonoscope was advanced until the ileocecal valve and appendiceal orifice were clearly viewed. The prep was excellent with clear visualization of the mucosal folds. The scope was removed with visualization of each mucosal fold. Scattered diverticulosis was encountered. No colonic polyps were found. No evidence of focal colitis was found. Retroflexion of the scope demonstrated grade 2 internal hemorrhoids without active bleeding or inflammation. The colon was desufflated. The patient had tolerated the procedure well. Withdrawal time was over 6 minutes. FINDINGS: Aronchick preparation quality scale 1 (1-5) Internal hemorrhoids, grade 2 External prolapsed hemorrhoids, grade 3 No arteriovenous malformations. No adenomatous polyps. No focal colitis. Moderate sigmoid diverticulosis RECOMMENDATIONS: Lower endoscopy as needed Plan - Discharge Summary Discharge Rx Participant: Yes New Discharge Prescriptions: No Action DULoxetine HCL [Cymbalta] 60 mg PO QAM Omeprazole 20 mg PO DAILY Albuterol Inhaler [Ventolin Hfa Inhaler] 2 puff INHALATION RT-Q6H PRN PRN Reason: Shortness Of Breath Discharge Medication List DULoxetine HCL [Cymbalta] 60 mg PO QAM 08/16/19 [History] Omeprazole 20 mg PO DAILY 08/16/19 [History] Albuterol Inhaler [Ventolin Hfa Inhaler] 2 puff INHALATION RT-Q6H PRN 09/18/19 [History] Follow up Appointment(s)/Referral(s): Sunil Moon MD [Primary Care Provider] - 1-2 days
[2019-09-19 13:39] VITALS: BMI 22.7
[2019-09-19 14:31] VITALS: BP 98/63
== END 2019-09-19 14:20 | disposition home or self-care (01) ==
LOC: EC 07:51 → 4SSUR 09:30
PROVIDERS: ADMIT Surgery Plastic and Reconstructive Surgery; ATTEND Surgery Plastic and Reconstructive Surgery
DX: K29.50 Unspecified chronic gastritis without bleeding (principal); K21.0 Gastro-esophageal reflux disease with esophagitis; K22.10 Ulcer of esophagus without bleeding; K44.9 Diaphragmatic hernia without obstruction or gangrene; K57.30 Diverticulosis of large intestine without perforation or abscess without bleeding; K64.1 Second degree hemorrhoids; K64.8 Other hemorrhoids; M47.816 Spondylosis without myelopathy or radiculopathy, lumbar region; F32.9 Major depressive disorder, single episode, unspecified; I10 Essential (primary) hypertension; F41.9 Anxiety disorder, unspecified; Z98.890 Other specified postprocedural states; Z87.19 Personal history of other diseases of the digestive system; Z79.899 Other long term (current) drug therapy; Z88.5 Allergy status to narcotic agent; Z84.89 Family history of other specified conditions; Z87.891 Personal history of nicotine dependence; Z82.3 Family history of stroke; Z82.49 Family history of ischemic heart disease and other diseases of the circulatory system
CPT/HCPCS: 96374; 96361; 99285; 36415; 88305; 80053; 82150; 82550; 83605; 83690; 84484; 85025; 81003; 74018; 74177; 45378; 43239; G0378 ×2; J2001; J1885; J2704; C9113; Q9967 ×2

== ENCOUNTER 2019-10-18 10:58 | Emergency (ER) | payer BC ==
[2019-10-18 11:41] VITALS: TEMP 97.7
--- NOTE | 2019-10-18 12:21 | XR ---
EXAMINATION TYPE: XR chest 2V DATE OF EXAM: 10/18/2019 COMPARISON: NONE HISTORY: Productive cough TECHNIQUE: Frontal and lateral views of the chest are obtained. FINDINGS: There is no focal air space opacity, pleural effusion, or pneumothorax seen. Pulmonary hyp erinflation could relate to the degree of inspiration or underlying COPD. Correlate with pulmonary fu nction tests. The cardiac silhouette size is within normal limits. The osseous structures are intac t. IMPRESSION: No acute cardiopulmonary process.
[2019-10-18 12:39] VITALS: BP 114/77; PULSE 70; RESP 20
--- NOTE | 2019-10-18 13:13 | ED ---
URI HPI - General Chief Complaint: Upper Respiratory Infection Stated Complaint: cold/congestion Time Seen by Provider: 10/18/19 11:49 Source: patient Mode of arrival: ambulatory Limitations: no limitations - History of Present Illness Initial Comments: Patient is a 43-year-old male presenting to emergency Department with complaints of a cough x 1 week. Patient states he finished an antibiotic for his cough however he is feeling worse. Patient states last 2 days he's been having body aches and nausea. He's also been having hot flashes and chills. He has not taken his temperature. He denies vomiting, abdominal pain, diarrhea. Does admit to runny nose, congestion. He's been taking some Tylenol intermittently without relief of symptoms. He has no other complaints at this time. He does have history of mild asthma which he has been using an albuterol inhaler as needed. Upon arrival to the ER today, vital signs are stable. - Related Data Home Medications Medication Instructions Recorded Confirmed DULoxetine HCL [Cymbalta] 60 mg PO QAM 08/16/19 09/18/19 Omeprazole 20 mg PO DAILY 08/16/19 09/18/19 Albuterol Inhaler [Ventolin Hfa 2 puff INHALATION RT-Q6H PRN 09/18/19 09/18/19 Inhaler] Previous Rx's Medication Instructions Recorded Polyethylene Glycol 3350 [Miralax] 17 gm PO DAILY #30 packet 09/19/19 Ondansetron Odt [Zofran Odt] 4 mg PO Q8HR PRN #10 tab 10/18/19 methylPREDNISolone [Medrol Dose 4 mg PO DIRECTED #1 pack 10/18/19 Pack] Allergies Allergy/AdvReac Type Severity Reaction Status Date / Time hydrocodone [From Vicodin] Allergy Rash/Hives Verified 10/18/19 11:41 codeine AdvReac Nausea Verified 10/18/19 11:41 Review of Systems ROS Statement: Those systems with pertinent positive or pertinent negative responses have been documented in the HPI. ROS Other: All systems not noted in ROS Statement are negative. Past Medical History Past Medical History: Hypertension Additional Past Medical History / Comment(s): recent admission abdominal pain History of Any Multi-Drug Resistant Organisms: None Reported Past Surgical History: Hernia Repair Additional Past Surgical History / Comment(s): hernia surgery x2,cyst removal Past Anesthesia/Blood Transfusion Reactions: Family History of Problems w/ Anesthesia, Postoperative Nausea & Vomiting (PONV) Additional Past Anesthesia/Blood Transfusion Reaction / Comment(s): mom has a hard time coming out of anesthesia "real droggy for a couple days afterward" Past Psychological History: Anxiety Smoking Status: Former smoker Past Alcohol Use History: None Reported Past Drug Use History: Marijuana - Past Family History Mother Family Medical History: CVA/TIA Additional Family Medical History / Comment(s): Aorta transplant Father Family Medical History: Myocardial Infarction ([place]) General Exam - General Exam Comments Initial Comments: GENERAL: Well-appearing, well-nourished and in no acute distress. HEAD: Atraumatic, normocephalic. EYES: Pupils equal round and reactive to light, extraocular movements intact, sclera anicteric, conjunctiva are normal. ENT: TMs normal, nares patent, oropharynx clear without exudates. Moist mucous membranes. NECK: Normal range of motion, supple without lymphadenopathy or JVD. LUNGS: Breath sounds clear to auscultation bilaterally and equal. No wheezes rales or rhonchi. HEART: Regular rate and rhythm without murmurs, rubs or gallops. ABDOMEN: Soft, nontender, normoactive bowel sounds. No guarding, no rebound. No masses appreciated. EXTREMITIES: Normal range of motion, no pitting or edema. No clubbing or cyanosis. NEUROLOGICAL: Normal speech, normal gait. PSYCH: Normal mood, normal affect. SKIN: Warm, Dry, normal turgor, no rashes or lesions noted. Limitations: no limitations Course Vital Signs 10/18/19 10/18/19 10/18/19 11:39 11:41 13:31 Temperature 97.7 F Pulse Rate 87 70 Respiratory 16 20 20 Rate Blood Pressure 122/83 114/77 O2 Sat by Pulse 100 Oximetry Medical Decision Making - Medical Decision Making Patient is a 43-year-old male presenting with a cough 1 week. Vital signs are stable upon arrival. Patient's chest x-ray shows no acute abnormalities. Patient is influenza positive. I discussed these findings with the patient. Patient will be placed on steroids secondary to him having mild asthma and shortness of breath. I also gave him Zofran as needed for nausea. Tamiflu is not indicated at this time as his symptoms have been more than 48 hours. He will continue with Motrin or Tylenol for fever and symptom control. He is in agreement with this plan of care. Patient will follow up with his PCP if symptoms persist. Return parameters were discussed with the patient and he verbalized understanding. - Lab Data Lab Results 10/18/19 Range/Units 12:00 Influenza Type A RNA Not Detected (Not Detectd) Influenza Type B (PCR) Detected H (Not Detectd) Disposition Clinical Impression: Influenza, Cough Disposition: HOME SELF-CARE Condition: Stable Instructions (If sedation given, give patient instructions): Influenza (ED) Additional Instructions: Please return to the Emergency Department if symptoms worsen or any other concerns. Take steroids as prescribed. Use Zofran as needed for nausea. Prescriptions: methylPREDNISolone [Medrol Dose Pack] 4 mg PO DIRECTED #1 pack Ondansetron Odt [Zofran Odt] 4 mg PO Q8HR PRN #10 tab PRN Reason: Nausea Is patient prescribed a controlled substance at d/c from ED?: No Referrals: Sunil Moon MD [Primary Care Provider] - 1-2 days
== END 2019-10-18 13:31 | disposition home or self-care (01) ==
LOC: EC 10:58
DX: J11.1 Influenza due to unidentified influenza virus with other respiratory manifestations (principal); J45.909 Unspecified asthma, uncomplicated; I10 Essential (primary) hypertension; F41.9 Anxiety disorder, unspecified; Z79.899 Other long term (current) drug therapy; Z88.5 Allergy status to narcotic agent; Z88.6 Allergy status to analgesic agent; Z87.891 Personal history of nicotine dependence
CPT/HCPCS: 71046; 87502; 99283

== ENCOUNTER 2019-11-11 08:40 | Observation (INO) | payer BC ==
[2019-11-11] MEDS ORDERED: SODIUM CHLORIDE 0.9% 1,000 ML IV STA (09:02)
[2019-11-11] MEDS ORDERED: MORPHINE SULFATE 4 MG/ML SYRINGE IV STA (09:02)
[2019-11-11] MEDS ORDERED: PANTOPRAZOLE 40 MG/10 ML VIAL IVP STA (09:02)
--- NOTE | 2019-11-11 09:06 | ED ---
General Adult HPI - General Chief complaint: Abdominal Pain Stated complaint: Abdominal pain Time Seen by Provider: 11/11/19 08:52 Source: patient, RN notes reviewed Mode of arrival: ambulatory Limitations: no limitations - History of Present Illness Initial comments: Patient is a pleasant 43-year-old male presenting to the emergency Department with left-sided abdominal discomfort. Abdominal discomfort is chronic and has been occurring for years. Patient did have hernia surgery done a year ago without improvement of symptoms. Symptoms seem to worsen the past couple of weeks. Patient just finished antibiotics a week ago for presumptive divertic ulitis. No nausea vomiting or diarrhea. No fevers. - Related Data Home Medications Medication Instructions Recorded Confirmed DULoxetine HCL [Cymbalta] 60 mg PO QAM 08/16/19 11/11/19 Omeprazole 20 mg PO DAILY 08/16/19 11/11/19 Albuterol Inhaler [Ventolin Hfa 2 puff INHALATION RT-Q6H PRN 09/18/19 11/11/19 Inhaler] Fluticasone Nasal [place] [Flonase 2 spr EA NOSTRIL DAILY PRN 11/11/19 11/11/19 Nasal [place]] Ibuprofen [Motrin] 800 mg PO TID PRN 11/11/19 11/11/19 L.acidoph,Paracasei, B.lactis 1 cap PO DAILY 11/11/19 11/11/19 [Probiotic] Naproxen 500 mg PO BID PRN 11/11/19 11/11/19 Allergies Allergy/AdvReac Type Severity Reaction Status Date / Time hydrocodone [From Vicodin] Allergy Rash/Hives Verified 11/11/19 09:49 codeine AdvReac Nausea Verified 11/11/19 09:49 Review of Systems ROS Statement: Those systems with pertinent positive or pertinent negative responses have been documented in the HPI. ROS Other: All systems not noted in ROS Statement are negative. Constitutional: Denies: fever Eyes: Denies: eye pain ENT: Denies: ear pain Respiratory: Denies: dyspnea Cardiovascular: Denies: chest pain Endocrine: Denies: fatigue Gastrointestinal: Reports: as per HPI, abdominal pain. Denies: vomiting Genitourinary: Denies: dysuria, hematuria Musculoskeletal: Denies: back pain Skin: Denies: rash Neurological: Denies: weakness Past Medical History Past Medical History: Hypertension Additional Past Medical History / Comment(s): recent admission abdominal pain History of Any Multi-Drug Resistant Organisms: None Reported Past Surgical History: Hernia Repair Additional Past Surgical History / Comment(s): hernia surgery x2,cyst removal Past Anesthesia/Blood Transfusion Reactions: Family History of Problems w/ Anesthesia, Postoperative Nausea & Vomiting (PONV) Additional Past Anesthesia/Blood Transfusion Reaction / Comment(s): mom has a hard time coming out of anesthesia "real droggy for a couple days afterward" Past Psychological History: Anxiety Smoking Status: Former smoker Past Alcohol Use History: None Reported Past Drug Use History: Marijuana - Past Family History Mother Family Medical History: CVA/TIA Additional Family Medical History / Comment(s): Aorta transplant Father Family Medical History: Myocardial Infarction ([place]) General Exam Limitations: no limitations General appearance: alert, in no apparent distress, other (Patient resting comfortably in bed and appears in no distress.) Head exam: Present: normocephalic Eye exam: Present: normal appearance, PERRL ENT exam: Present: normal oropharynx Neck exam: Present: normal inspection Respiratory exam: Present: normal lung sounds bilaterally Cardiovascular Exam: Present: regular rate, normal rhythm Expanded Peripheral pulses: 2+: Posterior Tibialis (R), Posterior Tibialis (L), Dorsalis Pedis (R), Dorsalis Pedis (L) GI/Abdominal exam: Present: soft, tenderness (Mild tenderness left mid abdomen), normal bowel sounds. Absent: distended, guarding, rebound, rigid, pulsatile mass Extremities exam: Present: normal inspection Neurological exam: Present: alert Psychiatric exam: Present: normal affect, normal mood Skin exam: Present: normal color Course Vital Signs 11/11/19 08:42 Temperature 97.7 F Pulse Rate 72 Respiratory 19 Rate Blood Pressure 121/81 O2 Sat by Pulse 99 Oximetry Medical Decision Making - Medical Decision Making Patient reevaluated and updated. Case was discussed with Dr. Maurice who does recommend medical admission and IV antibiotics and GI consult. Case also discussed with Dr. Jean, who will admit covering for Dr. Moon. - Lab Data Result diagrams: 11/11/19 09:17 11/11/19 09:15 Lab Results 11/11/19 11/11/19 11/11/19 Range/Units 09:11 09:15 09:15 WBC (3.8-10.6) k/uL RBC (4.30-5.90) m/uL Hgb (13.0-17.5) gm/dL Hct (39.0-53.0) % MCV (80.0-100.0) fL MCH (25.0-35.0) pg MCHC (31.0-37.0) g/dL RDW (11.5-15.5) % Plt Count (150-450) k/uL Neutrophils % % Lymphocytes % % Monocytes % % Eosinophils % % Basophils % % Neutrophils # (1.3-7.7) k/uL Lymphocytes # (1.0-4.8) k/uL Monocytes # (0-1.0) k/uL Eosinophils # (0-0.7) k/uL Basophils # (0-0.2) k/uL PT 11.1 (9.0-12.0) sec INR 1.1 (<1.2) APTT 25.7 (22.0-30.0) sec Sodium 137 (137-145) mmol/L Potassium 4.1 (3.5-5.1) mmol/L Chloride 103 (98-107) mmol/L Carbon Dioxide 29 (22-30) mmol/L Anion Gap 5 mmol/L BUN 15 (9-20) mg/dL Creatinine 0.73 (0.66-1.25) mg/dL Est GFR (CKD-EPI)AfAm >90 (>60 ml/min/1.73 sqM) Est GFR (CKD-EPI)NonAf >90 (>60 ml/min/1.73 sqM) Glucose 108 H (74-99) mg/dL Calcium 8.9 (8.4-10.2) mg/dL Total Bilirubin 0.5 (0.2-1.3) mg/dL AST 27 (17-59) U/L ALT 19 (4-49) U/L Alkaline Phosphatase 64 (38-126) U/L Total Protein 7.1 (6.3-8.2) g/dL Albumin 4.1 (3.5-5.0) g/dL Amylase 47 (30-110) U/L Lipase 63 (23-300) U/L Urine Color Yellow Urine Appearance Clear (Clear) Urine pH 6.0 (5.0-8.0) Ur Specific [place] 1.023 (1.001-1.035) Urine Protein Negative (Negative) Urine Glucose (UA) Negative (Negative) Urine Ketones Negative (Negative) Urine Blood Trace H (Negative) Urine Nitrite Negative (Negative) Urine Bilirubin Negative (Negative) Urine Urobilinogen <2.0 (<2.0) mg/dL Ur Leukocyte Esterase Negative (Negative) Urine RBC 1 (0-5) /hpf Urine WBC 1 (0-5) /hpf Urine Mucus Rare H (None) /hpf 11/11/19 Range/Units 09:17 WBC 5.2 (3.8-10.6) k/uL RBC 4.90 (4.30-5.90) m/uL Hgb 15.7 (13.0-17.5) gm/dL Hct 45.4 (39.0-53.0) % MCV 92.7 (80.0-100.0) fL MCH 32.1 (25.0-35.0) pg MCHC 34.7 (31.0-37.0) g/dL RDW 12.4 (11.5-15.5) % Plt Count 200 (150-450) k/uL Neutrophils % 70 % Lymphocytes % 18 % Monocytes % 6 % Eosinophils % 4 % Basophils % 2 % Neutrophils # 3.6 (1.3-7.7) k/uL Lymphocytes # 0.9 L (1.0-4.8) k/uL Monocytes # 0.3 (0-1.0) k/uL Eosinophils # 0.2 (0-0.7) k/uL Basophils # 0.1 (0-0.2) k/uL PT (9.0-12.0) sec INR (<1.2) APTT (22.0-30.0) sec Sodium (137-145) mmol/L Potassium (3.5-5.1) mmol/L Chloride (98-107) mmol/L Carbon Dioxide (22-30) mmol/L Anion Gap mmol/L BUN (9-20) mg/dL Creatinine (0.66-1.25) mg/dL Est GFR (CKD-EPI)AfAm (>60 ml/min/1.73 sqM) Est GFR (CKD-EPI)NonAf (>60 ml/min/1.73 sqM) Glucose (74-99) mg/dL Calcium (8.4-10.2) mg/dL Total Bilirubin (0.2-1.3) mg/dL AST (17-59) U/L ALT (4-49) U/L Alkaline Phosphatase (38-126) U/L Total Protein (6.3-8.2) g/dL Albumin (3.5-5.0) g/dL Amylase (30-110) U/L Lipase (23-300) U/L Urine Color Urine Appearance (Clear) Urine pH (5.0-8.0) Ur Specific [place] (1.001-1.035) Urine Protein (Negative) Urine Glucose (UA) (Negative) Urine Ketones (Negative) Urine Blood (Negative) Urine Nitrite (Negative) Urine Bilirubin (Negative) Urine Urobilinogen (<2.0) mg/dL Ur Leukocyte Esterase (Negative) Urine RBC (0-5) /hpf Urine WBC (0-5) /hpf Urine Mucus (None) /hpf - Radiology Data Radiology results: report reviewed (Computed tomography scan concerning for colitis) Disposition Clinical Impression: Colitis Disposition: ADMITTED IP TO THIS HOSP Is patient prescribed a controlled substance at d/c from ED?: No Referrals: Sunil Moon MD [Primary Care Provider] - 1-2 days Decision Time: 11:25
[2019-11-11 09:33] LABS: Basophils # (A) 0.1 k/uL (0-0.2); Basophils % (A) 2 %; Eosinophils # (A) 0.2 k/uL (0-0.7); Eosinophils % (A) 4 %; HCT 45.4 % (39.0-53.0); HGB 15.7 gm/dL (13.0-17.5); Lymphocytes # (A) 0.9 k/uL (1.0-4.8); Lymphocytes % (A) 18 %; MCH 32.1 pg (25.0-35.0); MCHC 34.7 g/dL (31.0-37.0); MCV 92.7 fL (80.0-100.0); Mean Platelet Volume 7.7; Monocytes # (A) 0.3 k/uL (0-1.0); Monocytes % (A) 6 %; Neutrophils # (A) 3.6 k/uL (1.3-7.7); Neutrophils % (A) 70 %; Platelet Count 200 k/uL (150-450); RDW 12.4 % (11.5-15.5); WBC 5.2 k/uL (3.8-10.6)
[2019-11-11 09:34] LABS: Appearance,Urine Clear (Clear); Bilirubin,Urine Negative (Negative); Blood,Urine Trace (Negative); Color,Urine Yellow; Glucose,Urine (UA) Negative (Negative); Ketones,Urine Negative (Negative); Leukocyte Esterase,Urine Negative (Negative); Mucus,Urine Rare /hpf; Nitrite,Urine Negative (Negative); Protein,Urine Negative (Negative); RBC,Urine 1 /hpf (0-5); Specific Gravity,Urine 1.023 (1.001-1.035); Urobilinogen,Urine <2.0 mg/dL (<2.0); WBC,Urine 1 /hpf (0-5)
[2019-11-11 09:45] LABS: ALT 19 U/L (4-49); AST 27 U/L (17-59); African American GFR (CKD) >90 (>60 ml/min/1.73 sqM); Albumin 4.1 g/dL (3.5-5.0); Alkaline Phosphatase 64 U/L (38-126); Amylase 47 U/L (30-110); Anion Gap 5 mmol/L; Blood Urea Nitrogen 15 mg/dL (9-20); Calcium 8.9 mg/dL (8.4-10.2); Carbon Dioxide 29 mmol/L (22-30); Chloride 103 mmol/L (98-107); Glucose 108 mg/dL (74-99); Non-African American GFR(CKD) >90 (>60 ml/min/1.73 sqM); Potassium 4.1 mmol/L (3.5-5.1); Sodium 137 mmol/L (137-145); Total Bilirubin 0.5 mg/dL (0.2-1.3); Total Protein 7.1 g/dL (6.3-8.2)
[2019-11-11 09:48] LABS: INR 1.1 (<1.2); Partial Thromboplastin Time 25.7 sec (22.0-30.0); Prothrombin Time 11.1 sec (9.0-12.0)
--- NOTE | 2019-11-11 10:05 | CT ---
EXAMINATION TYPE: CT abdomen pelvis w con DATE OF EXAM: 11/11/2019 COMPARISON: Prior CT 09/18/2019 HISTORY: Left sided pain with nausea. CT DLP: 757.1 mGycm Automated exposure control for dose reduction was used. TECHNIQUE: Helical acquisition of images from the lung bases through the pelvis have been completed. CONTRAST: Performed without Oral Contrast and with IV Contrast, patient injected with 100 mL of Isovue 300. FINDINGS: There is a hiatal hernia present. LUNG BASES: No significant abnormality is appreciated. AORTA: No significant abnormality is appreciated. LIVER/GB: No significant interval change is appreciated. PANCREAS: No significant abnormality is seen. SPLEEN: No significant abnormality is seen. ADRENALS: No significant abnormality is seen. KIDNEYS: No significant abnormality is seen. REPRODUCTIVE ORGANS: No significant abnormality is seen BOWEL: There is diffuse colonic wall thickening. Some scattered diverticular changes are present. Th e appendix is normal. Fluid-filled loops of small bowel are present. FREE AIR: No Free Air visible. ASCITES: None visible. PELVIC ADENOPATHY: None visualized. RETROPERITONEAL ADENOPATHY: No Retroperitoneal Adenopathy visible. URINARY BLADDER: Wall thickening may be due to lack of distention, correlate to exclude cystitis. OSSEOUS STRUCTURES: No significant abnormality is seen. IMPRESSION: CORRELATE FOR COLITIS, ENTERITIS
[2019-11-11] MEDS ORDERED: NALOXONE 0.4 MG/ML 1 ML VIAL IV PRN (11:25)
[2019-11-11] MEDS ORDERED: MORPHINE SULFATE 4 MG/ML SYRINGE IV PRN (11:25)
[2019-11-11] MEDS ORDERED: SODIUM CHLORIDE 0.9% 1,000 ML IV SCH (11:30)
[2019-11-11] MEDS ORDERED: PIPERACILLIN-TAZOBACTAM 3.375 GM in SODIUM CHLORIDE 0.9% 100 ML IVPB ONE (11:45)
[2019-11-11] MEDS ORDERED: metroNIDAZOLE-NS PMX 500 MG in SALINE 1 100ML.BAG IVPB ONE (12:00)
[2019-11-11 13:17] VITALS: RESP 18
[2019-11-11] MEDS ORDERED: DICYCLOMINE 10 MG CAP PO PRN (14:32)
[2019-11-11] MEDS ORDERED: PIPERACILLIN-TAZOBACTAM 3.375 GM in SODIUM CHLORIDE 0.9% 100 ML IVPB SCH ×2 (16:00→20:00)
[2019-11-11 16:12] VITALS: BP 110/72; PULSE 70; TEMP 98.3
[2019-11-11] MEDS ORDERED: metroNIDAZOLE-NS PMX 500 MG in SALINE 1 100ML.BAG IVPB SCH (18:00)
--- NOTE | 2019-11-11 18:09 | P.HPIM ---
History of Present Illness H&P Date: 11/11/19 Nurse called me around 5:30 PM that patient wanted to leave. I told the nurse that I should be there by 6:30 PM to see him. Patient left AMA. Patient was not seen by me. Past Medical History Past Medical History: GERD/Reflux, Hypertension, Osteoarthritis (OA) Additional Past Medical History / Comment(s): Chronic L side abdominal pain, SBO, hiatal hernia, hemorrhoids, diverticulosis, migraines, seasonal allergies, arthritis neck. History of Any Multi-Drug Resistant Organisms: None Reported Past Surgical History: Hernia Repair Additional Past Surgical History / Comment(s): Ventral hernia surgery x2, cyst removed R cheek, skin lesions removed L chin/L side of neck. Past Anesthesia/Blood Transfusion Reactions: Family History of Problems w/ Anesthesia, Postoperative Nausea & Vomiting (PONV) Additional Past Anesthesia/Blood Transfusion Reaction / Comment(s): Pt has PONV. Mother had a hard time coming out of anesthesia "real droggy for a couple days afterward" Smoking Status: Former smoker - Past Family History Mother Family Medical History: CVA/TIA Additional Family Medical History / Comment(s): Aorta transplant, TIAs. Mother is living. Father Family Medical History: Myocardial Infarction ([place]) Additional Family Medical History / Comment(s): Father is living. He had a CO at the age of 60yrs. Medications and Allergies Home Medications Medication Instructions Recorded Confirmed Type DULoxetine HCL [Cymbalta] 60 mg PO QAM 08/16/19 11/11/19 History Omeprazole 20 mg PO DAILY 08/16/19 11/11/19 History Albuterol Inhaler [Ventolin Hfa 2 puff INHALATION RT-Q6H PRN 09/18/19 11/11/19 History Inhaler] Fluticasone Nasal [place] [Flonase 2 spr EA NOSTRIL DAILY PRN 11/11/19 11/11/19 History Nasal [place]] Ibuprofen [Motrin] 800 mg PO TID PRN 11/11/19 11/11/19 History L.acidoph,Paracasei, B.lactis 1 cap PO DAILY 11/11/19 11/11/19 History [Probiotic] Naproxen 500 mg PO BID PRN 11/11/19 11/11/19 History Allergies Allergy/AdvReac Type Severity Reaction Status Date / Time hydrocodone [From Vicodin] Allergy Rash/Hives Verified 11/11/19 09:49 codeine AdvReac Nausea Verified 11/11/19 09:49 Physical Exam Vitals: Vital Signs Temp Pulse Pulse Resp BP BP Pulse Ox 11/11/19 16:00 98.3 F 70 18 110/72 98 11/11/19 13:15 98 F 68 18 112/72 97 11/11/19 12:18 73 19 105/78 96 11/11/19 08:42 97.7 F 72 19 121/81 99 Intake and Output 11/11/19 11/11/19 11/11/19 06:59 14:59 22:59 Intake Total 600 Balance 600 Intake: Oral 600 Other: Weight 70.08 kg Results CBC & Chem 7: 11/11/19 09:17 11/11/19 09:15 Labs: Abnormal Lab Results - Last 24 Hours (Table) 11/11/19 11/11/19 11/11/19 Range/Units 09:11 09:15 09:17 Lymphocytes # 0.9 L (1.0-4.8) k/uL Glucose 108 H (74-99) mg/dL Urine Blood Trace H (Negative) Urine Mucus Rare H (None) /hpf Thrombosis Risk Factor Assmnt - Choose All That Apply Any of the Below Risk Factors Present?: Yes Each Factor Represents 1 point: Age 41-60 years Other Risk Factors: No Other congenital or acquired thrombophilia - If yes, enter type in comment: No Thrombosis Risk Factor Assessment Total Risk Factor Score: 1 Thrombosis Risk Factor Assessment Level: Low Risk
--- NOTE | 2019-11-11 18:10 | P.DS ---
Providers Date of admission: 11/11/19 11:25 Expected date of discharge: 11/11/19 Attending physician: Papa Jean Consults: 11/11/19 11:26 Consult Physician Urgent Consulting Provider: Malena Farmer Consult Reason/Comments: colitis Do you want consulting provider notified?: Already Contacted Consult Physician Urgent Consulting Provider: Mariposa Bassett Consult Reason/Comments: colitis Do you want consulting provider notified?: Yes Primary care physician: Sunil Moon [facility] Course: Nurse called me around 5:30 PM that patient wanted to leave. I told the nurse that I should be there by 6:30 PM to see him. Patient left AMA. Patient was not seen by me. Plan - Discharge Summary Discharge Rx Participant: No New Discharge Prescriptions: No Action DULoxetine HCL [Cymbalta] 60 mg PO QAM Omeprazole 20 mg PO DAILY Albuterol Inhaler [Ventolin Hfa Inhaler] 2 puff INHALATION RT-Q6H PRN PRN Reason: Shortness Of Breath Naproxen 500 mg PO BID PRN PRN Reason: Pain Ibuprofen [Motrin] 800 mg PO TID PRN PRN Reason: Pain Fluticasone Nasal [place] [Flonase Nasal [place]] 2 spr EA NOSTRIL DAILY PRN PRN Reason: Nasal Congestion L.acidoph,Paracasei, B.lactis [Probiotic] 1 cap PO DAILY Discharge Medication List DULoxetine HCL [Cymbalta] 60 mg PO QAM 08/16/19 [History] Omeprazole 20 mg PO DAILY 08/16/19 [History] Albuterol Inhaler [Ventolin Hfa Inhaler] 2 puff INHALATION RT-Q6H PRN 09/18/19 [History] Fluticasone Nasal [place] [Flonase Nasal [place]] 2 spr EA NOSTRIL DAILY PRN 11/11/19 [History] Ibuprofen [Motrin] 800 mg PO TID PRN 11/11/19 [History] L.acidoph,Paracasei, B.lactis [Probiotic] 1 cap PO DAILY 11/11/19 [History] Naproxen 500 mg PO BID PRN 11/11/19 [History] Follow up Appointment(s)/Referral(s): Sunil Moon MD [Primary Care Provider] - 1-2 days Discharge Disposition: Left Against Medical Advice
--- NOTE | 2019-11-11 20:40 | CONS ---
CONSULTATION DATE OF SERVICE: 11/11/2019 REQUESTING PHYSICIAN: Dr. Sunil Dawn. REASON FOR CONSULTATION: Abdominal pain and diarrhea. HISTORY OF PRESENT ILLNESS: The patient is a 43-year-old pleasant white male who came in the emergency room this morning complaining of left-sided abdominal pain and diarrhea on and off for the last few days duration. The patient states that about 3 weeks ago he was diagnosed with possible sigmoid diverticulitis by his nurse practitioner in [place] and was started on antibiotics for possible diverticulitis. Antibiotics ended about a week ago. Since then, he has been having some intermittent lower abdominal pain. He had diarrhea on Thursday, which was 2 days ago, had about 5 or 6 loose watery bowel movements. Yesterday, he had 2 loose bowel movements but today the pain got extremely intense and hence came to the emergency room and subsequently admitted to the hospital for further evaluation. In the emergency room, he did have a CT of the abdomen and pelvis done that showed diffuse colonic wall thickening and scattered sigmoid diverticulosis. His last colonoscopy by Dr. Farmer was in September of 2019 that showed diverticulosis. He is feeling much better today. He was started on empiric antibiotics. Stool studies were requested, which are still pending at the time of this dictation. He denies any fever, chills, night sweats. PAST MEDICAL HISTORY: Significant for diverticulosis, hernia repair, hypertension. Anxiety and depression. MEDICATIONS: At home, omeprazole, Cymbalta, Duloxetine, Flonase, Motrin, probiotics. ALLERGIES: VICODIN AND CODEINE. SOCIAL HISTORY: Former smoker. No alcohol use. PAST SURGICAL HISTORY: Hernia repair, EGD, colonoscopy September [address] Farmer. FAMILY HISTORY: Mother had CVA. Father had coronary artery disease. REVIEW OF SYSTEMS: CARDIOPULMONARY: No chest pain, shortness of breath. GENITOURINARY: No dysuria or hematuria. MUSCULOSKELETAL unremarkable. SKIN unremarkable. ENDOCRINE unremarkable. PSYCHIATRIC unremarkable. NEUROLOGICAL: Unremarkable. ENT/vision unremarkable. CONSTITUTIONAL: No recent weight loss. No fever, chills, night sweats. PHYSICAL EXAMINATION: She appears comfortable. No apparent distress. Vital signs are stable. Blood pressure is 112/72, pulse rate is 69, temperature 98. HEENT examination unremarkable. Conjunctivae pink. Sclerae anicteric. Oral cavity no lesions. NECK: No JVD or lymph node enlargement. Chest was clear to auscultation. HEART: Regular rate and rhythm. ABDOMEN: Soft. There was very minimal tenderness in the suprapubic area and left lower quadrant area. Rest of the abdomen was benign. Bowel sounds are positive. No organomegaly. EXTREMITIES: No pedal edema. SKIN: No rashes. NEUROLOGIC: Alert and oriented x3. No focal deficits. LABS: WBC 5.2, hemoglobin 15.7, platelets normal. Basic metabolic panel is within normal limits. IMPRESSION: This is a patient who was admitted to the hospital with acute onset of severe left lower quadrant abdominal pain and diarrhea for the last few days duration. He was treated with empiric antibiotics for possible sigmoid diverticulitis about 2 weeks ago for a week duration. Since he finished the antibiotics, he has been having intermittent lower abdominal pain with diarrhea, but much intense yesterday and hence came to the emergency room today. CT scan showed diffuse thickening of the colon consistent with acute colitis, possibly infectious colitis. Rule out C difficile colitis. Last colonoscopy September [address] Farmer showed diverticulosis. RECOMMENDATIONS: 1. Continue with empiric antibiotics. 2. Await stool cultures and C difficile toxin. 3. Advance diet as tolerated. 4. The patient wants to go home today, but I suggested that he stay until tomorrow morning and if he is better, he can be discharged home with outpatient followup in 2 weeks. Thank you for this consultation. RICARDO / SONYA: [id number] /
[2019-11-12] MEDS ORDERED: PANTOPRAZOLE 40 MG/10 ML VIAL IV SCH (09:00)
== END 2019-11-11 17:52 | disposition left against medical advice (07) ==
LOC: EC 08:40 → 1SOBS 11:25
PROVIDERS: ADMIT Hospitalist; ATTEND Hospitalist
DX: R10.9 Unspecified abdominal pain (principal); K21.9 Gastro-esophageal reflux disease without esophagitis; I10 Essential (primary) hypertension; M19.90 Unspecified osteoarthritis, unspecified site; K44.9 Diaphragmatic hernia without obstruction or gangrene; K52.9 Noninfective gastroenteritis and colitis, unspecified; K64.9 Unspecified hemorrhoids; K56.609 Unspecified intestinal obstruction, unspecified as to partial versus complete obstruction; Z87.891 Personal history of nicotine dependence; K57.32 Diverticulitis of large intestine without perforation or abscess without bleeding; G43.909 Migraine, unspecified, not intractable, without status migrainosus; Z79.51 Long term (current) use of inhaled steroids; Z79.1 Long term (current) use of non-steroidal anti-inflammatories (NSAID); Z79.899 Other long term (current) drug therapy; Z53.29 Procedure and treatment not carried out because of patient's decision for other reasons
CPT/HCPCS: 96366; 96361; 96365; 96375; 99285; 36415; 80053; 82150; 83690; 85025; 85610; 85730; 86140; 81001; 74177; G0378; J2543; J2270; C9113; Q9967

== ENCOUNTER 2019-12-21 | Observation (INO) | payer BC | END 2019-12-23 15:45 | disposition home or self-care (01) | PROVIDERS: ADMIT Hospitalist | CPT/HCPCS: 96376 ×3; 96361; 96366 ×3; 96367; 96375 ×2; 96365; 96372; 99285; 36415; 80053; 85652; 82150; 83605; 83690; 85025; 85027; 86140; 81003; 74176; G0378 ×4; J2543 ×2; J2270; J2405 ×2; J1650; J1170 ×2 ==

== ENCOUNTER → 2021-12-31 | Outpatient (CLI) | payer OTHER ==
--- NOTE | 2021-12-31 19:38 | FL ---
EXAMINATION TYPE: FL barium swallow DATE OF EXAM: 12/31/2021 HISTORY: 46-year-old male, chest pain, worse than heartburn, GERD and proximal dysphagia. COMPARISON: NONE TECHNIQUE: A double contrast esophagram is performed utilizing air and barium. A total of 2 minutes and 28 seconds of fluoroscopic time was utilized during procedure and 107 capture images were obtain ed. FINDINGS: Persistent smooth indentation of the posterior aspect of the esophagus opposite C5-6 level likely rep resenting a cricopharyngeal muscle spasm. There is small outpouching is seen superior to the indentat ion which could represent a small developing Zenker's diverticulum. This is seen at the time of the s wallowing followed by passage of the swallowed barium distally. The esophagus shows normal motility and emptying into the stomach otherwise. Moderate size sliding hi atal hernia appreciated in all sequences. No significant gastroesophageal reflux was seen during real time performance of this study. IMPRESSION: 1. The above-described findings are suggestive of cricopharyngeal muscle spasm with possible small de veloping Zenker's diverticulum, please correlate clinically. Further manometry/modified barium swallo w confirmation can be considered. 2. Sliding hiatal hernia as described above.
== END | disposition home or self-care (01) ==
LOC: RADFLMAIN 09:27
PROVIDERS: ATTEND Surgery Plastic and Reconstructive Surgery
DX: K21.9 Gastro-esophageal reflux disease without esophagitis (principal); K80.10 Calculus of gallbladder with chronic cholecystitis without obstruction; K44.9 Diaphragmatic hernia without obstruction or gangrene
CPT/HCPCS: 74220

== ENCOUNTER → 2022-01-01 | Outpatient (CLI) | payer OTHER ==
--- NOTE | 2022-01-01 10:15 | US ---
EXAMINATION TYPE: US gallbladder DATE OF EXAM: 01/01/2022 COMPARISON: NONE CLINICAL HISTORY: K80.10 CALCULUS OF GALLBLADDER WITH CHR CHOLYCYSTITIS. Pain EXAM MEASUREMENTS: Liver Length: 15.00 cm Gallbladder Wall: .2 cm CBD: .3 cm Right Kidney: 9.0 x 3.6 x 4.1 cm Pancreas: Tail obscured by overlying bowel gas Liver: wnl Gallbladder: No stones seen Evidence for sonographic Gonzalez's sign: No CBD: wnl Right Kidney: wnl IMPRESSION: 1. Unremarkable right upper quadrant ultrasound
== END | disposition home or self-care (01) ==
LOC: RADUSWWP 09:20
PROVIDERS: ATTEND Surgery Plastic and Reconstructive Surgery
DX: K21.9 Gastro-esophageal reflux disease without esophagitis (principal); K80.10 Calculus of gallbladder with chronic cholecystitis without obstruction
CPT/HCPCS: 76705

== ENCOUNTER 2022-02-05 07:58 | Day surgery (SDC) | payer OTHER ==
[2022-02-04 11:54] VITALS: BMI 25.5
--- NOTE | 2022-02-05 07:41 | P.GSHP ---
History of Present Illness H&P Date: 02/05/22 CHIEF COMPLAINT: GERD HISTORY OF PRESENT ILLNESS: The patient is a 46-year-old male who presents reports gastroesophageal reflux disease. Upper endoscopy was offered for further evaluation and management. PAST MEDICAL HISTORY: Please see list. PAST SURGICAL HISTORY: Please see list. MEDICATIONS: Please see list. ALLERGIES: Please see list. SOCIAL HISTORY: No illicit drug use FAMILY HISTORY: No reports of Crohn disease or ulcerative colitis. REVIEW OF ORGAN SYSTEMS: CONSTITUTIONAL: No reports of fevers or chills. GI: Denies any blood in stools or constipation. PHYSICAL EXAM: VITAL SIGNS: Stable GENERAL: Well-developed and pleasant in no acute distress. HEENT: No scleral icterus. Extraocular movements grossly intact. Moist buccal mucosa. NECK: Supple without lymphadenopathy. CHEST: Unlabored respirations. Equal bilateral excursions. CARDIOVASCULAR: Regular rate and rhythm. Distal 2+ pulses. ABDOMEN: Soft, nondistended. MUSCULOSKELETAL: No clubbing, cyanosis, or edema. ASSESSMENT: 1. Gastroesophageal reflux disease PLAN: 1. Recommend proceeding with an upper endoscopy Past Medical History Past Medical History: GERD/Reflux, Hypertension, Osteoarthritis (OA) Additional Past Medical History / Comment(s): Chronic L side abdominal pain, SBO, hiatal hernia, hemorrhoids, diverticulosis, migraines, seasonal allergies, arthritis neck. History of Any Multi-Drug Resistant Organisms: None Reported Past Surgical History: Hernia Repair, Tonsillectomy Additional Past Surgical History / Comment(s): Ventral hernia surgery x2, cyst removed R cheek, skin lesions removed L chin/L side of neck. COLONOSCOPY, EGD Past Anesthesia/Blood Transfusion Reactions: Family History of Problems w/ Anesthesia, Postoperative Nausea & Vomiting (PONV) Additional Past Anesthesia/Blood Transfusion Reaction / Comment(s): Pt has PONV. Mother had a hard time coming out of anesthesia "real Groggy for a couple days afterward" Smoking Status: Former smoker - Past Family History Mother Family Medical History: CVA/TIA Additional Family Medical History / Comment(s): Aorta transplant, TIAs. Mother is living. Father Family Medical History: Myocardial Infarction (MS) Additional Family Medical History / Comment(s): Father is living. He had a MS at the age of 60yrs. Medications and Allergies Home Medications Medication Instructions Recorded Confirmed Type DULoxetine HCL [Cymbalta] 60 mg PO QAM 08/16/19 12/21/19 History Omeprazole 20 mg PO DAILY 08/16/19 12/21/19 History Albuterol Inhaler (Mhu) [Ventolin 2 puff INHALATION RT-Q6H PRN 09/18/19 12/21/19 History Hfa Inhaler (u)] Fluticasone Nasal [place] [Flonase 2 spr EA NOSTRIL DAILY PRN 11/11/19 12/21/19 H istory Nasal [place]] L.acidoph,Paracasei, B.lactis 1 cap PO DAILY 11/11/19 12/21/19 History [Probiotic] Cyclobenzaprine [Flexeril] 5 mg PO BID PRN 12/21/19 12/21/19 History Meloxicam [Mobic] 15 mg PO DAILY PRN 12/21/19 12/21/19 History Dicyclomine [Bentyl] 10 mg PO TID PRN #90 capsule 12/22/19 Rx Amoxicillin/Potassium Clav 1 tab PO Q12HR #14 tab 12/23/19 Rx [Augmentin 875-125 Tablet] metroNIDAZOLE [Flagyl] 500 mg PO Q8HR #21 tab 12/23/19 Rx Allergies Allergy/AdvReac Type Severity Reaction Status Date / Time hydrocodone [From Vicodin] Allergy Rash/Hives Verified 02/04/22 11:45 codeine AdvReac Nausea Verified 02/04/22 11:45
[~2022-02-05 07:58] MED LIST: LACTATED RINGERS 1,000 ML IV SCH; LIDOCAINE 1% (10MG/ML) FOR IV START INTRADERMA PRN
[2022-02-05 08:16] VITALS: RESP 18; TEMP 96.9
[2022-02-05] MEDS ORDERED: PROPOFOL 10 MG/ML 20 ML VIAL IV ONE (08:37)
[2022-02-05] MEDS ORDERED: LIDOCAINE 2% INJ 20 MG/ML (2 ML VIAL) ONE (08:37)
[2022-02-05] MEDS ORDERED: MIDAZOLAM 2 MG/2 ML VIAL ONE (08:37)
[2022-02-05] MEDS ORDERED: KETAMINE 10 MG/ML 20 ML VIAL ONE (08:37)
--- NOTE | 2022-02-05 09:08 | P.PCN ---
Date of Procedure: 02/05/22 Description of Procedure: PREOPERATIVE DIAGNOSIS: Hiatal hernia Epigastric abdominal pain Gastroesophageal reflux disease. POSTOPERATIVE DIAGNOSIS: Gastroesophageal reflux disease. Diaphragmatic hiatal hernia Gastritis OPERATION: Esophagogastroduodenoscopy with biopsies along antrum and duodenum SURGEON: Malena Farmer MD ANESTHESIA: MAC. INDICATIONS: The patient is a 46-year-old male who presents with reflux disease. Benefits and risks of the procedure were described. Informed consent was obtained. DESCRIPTION: The patient was brought into the endoscopy suite and laid in the left lateral decubitus position. An Olympus gastroscope was passed along the posterior oropharynx down to the distal esophagus where the squamocolumnar junction was encountered at 40 cm from the incisors. The stomach was entered and no bile reflux was found. Additional findings are listed below. Biopsies with cold forceps were obtained of the antrum. The first through third portion of the duodenum was examined. Retroflexion of the scope confirmed Hill grade 3 lower esophageal valve. The squamocolumnar junction demonstrated LA grade B erosive esophagitis. The stomach was desufflated. The patient tolerated the procedure well. FINDINGS: Squamocolumnar junction 40 cm from the incisors. Diaphragmatic hiatus at 43 cm. Hiatal hernia, 3 cm Hill grade 3 lower esophageal valve. LA grade B erosive esophagitis. Biopsies obtained of the duodenum Chronic gastritis with biopsies obtained RECOMMENDATIONS: May benefit from antireflux operation Plan - Discharge Summary Discharge Rx Participant: No New Discharge Prescriptions: Continue DULoxetine HCL [Cymbalta] 60 mg PO QAM Omeprazole 20 mg PO DAILY Albuterol Inhaler (Mhu) [Ventolin Hfa Inhaler (Mhu)] 2 puff INHALATION RT-Q6H PRN PRN Reason: Shortness Of Breath Discharge Medication List DULoxetine HCL [Cymbalta] 60 mg PO QAM 08/16/19 [History] Omeprazole 20 mg PO DAILY 08/16/19 [History] Albuterol Inhaler (Mhu) [Ventolin Hfa Inhaler (Mhu)] 2 puff INHALATION RT-Q6H PRN 09/18/19 [History] Follow up Appointment(s)/Referral(s): Malena Farmer MD [STAFF PHYSICIAN] - 02/25/22 Patient Instructions/Handouts: *[facility] - (Anesthesia) Endoscopy Discharge Instructions, Upper Endoscopy (DC), Hiatal Hernia (DC) Discharge Disposition: HOME SELF-CARE
[2022-02-05 09:50] VITALS: BP 127/78; PULSE 78
== END 2022-02-05 10:40 | disposition home or self-care (01) ==
LOC: ORWHC2ENDO 07:58
PROVIDERS: ATTEND Surgery Plastic and Reconstructive Surgery
DX: K21.00 Gastro-esophageal reflux disease with esophagitis, without bleeding (principal); K44.9 Diaphragmatic hernia without obstruction or gangrene; K29.50 Unspecified chronic gastritis without bleeding; K31.9 Disease of stomach and duodenum, unspecified; I10 Essential (primary) hypertension; J45.909 Unspecified asthma, uncomplicated; F41.9 Anxiety disorder, unspecified; F32.A Depression, unspecified; G43.909 Migraine, unspecified, not intractable, without status migrainosus; K57.90 Diverticulosis of intestine, part unspecified, without perforation or abscess without bleeding; M47.812 Spondylosis without myelopathy or radiculopathy, cervical region; Z90.89 Acquired absence of other organs; Z87.891 Personal history of nicotine dependence; Z79.899 Other long term (current) drug therapy; Z88.5 Allergy status to narcotic agent; Z91.013 Allergy to seafood; Z98.890 Other specified postprocedural states; Z82.3 Family history of stroke; Z82.49 Family history of ischemic heart disease and other diseases of the circulatory system
CPT/HCPCS: 88305; 43239; J2250; J2704; J2001

== ENCOUNTER 2023-06-03 09:02 | Emergency (ER) | payer OTHER ==
[2023-06-03 09:23] VITALS: RESP 18; TEMP 98.1
[2023-06-03] MEDS ORDERED: KETOROLAC 15 MG/ML 1 ML VIAL IVP STA (10:24)
[2023-06-03] MEDS ORDERED: SODIUM CHLORIDE 0.9% 1,000 ML IV STA ×2 (10:24→12:06)
--- NOTE | 2023-06-03 10:28 | ED ---
Abdominal Pain HPI - General Chief Complaint: Abdominal Pain Stated Complaint: refused to say Time Seen by Provider: 06/03/23 10:08 Source: EMS Mode of arrival: EMS Limitations: no limitations - History of Present Illness Initial Comments: A 47-year-old male presenting to the ED with a chief complaint of abdominal pain. Patient has a known umbilical hernia. has had 2 prior surgical repairs of this in the past. States a year ago the hernia popped out and has been unreducible since. States he usually has a constant pressure due to this of his abdomen however states today when attempting to have a bowel movement started to experience severe pain at the hernia site. States pain is currently a 7 out of 10 in nature. Additionally, patient notes a history of constipation. States in the past 3 weeks has not had a fully formed bowel movement. States that he has been having "pebble-like" bowel movements. Denies blood in the stool. Patient states that he is still passing gas. Had nausea earlier however is not nauseous anymore. Denies chest pain or shortness of breath. No other complaints. - Related Data Home Medications Medication Instructions Recorded Confirmed DULoxetine HCL [Cymbalta] 60 mg PO DAILY 08/16/19 02/27/22 Omeprazole 20 mg PO BID 08/16/19 02/27/22 Albuterol Inhaler [Ventolin Hfa 2 puff INHALATION RT-Q4H PRN 02/27/22 02/27/22 Inhaler] Previous Rx's Medication Instructions Recorded HYDROcodone/APAP 5-325MG [[place] 1 tab PO Q4HR PRN 3 Days #12 tab 02/27/22 5-325] Allergies Allergy/AdvReac Type Severity Reaction Status Date / Time hydrocodone [From Vicodin] Allergy Rash/Hives Verified 06/03/23 09:22 codeine AdvReac Nausea Verified 06/03/23 09:22 Review of Systems ROS Statement: Those systems with pertinent positive or pertinent negative responses have been documented in the HPI. ROS Other: All systems not noted in ROS Statement are negative. Past Medical History Past Medical History: GERD/Reflux, Hypertension, Osteoarthritis (OA) Additional Past Medical History / Comment(s): Chronic L side abdominal pain, SBO, hiatal hernia, hemorrhoids, diverticulosis, migraines, seasonal allergies, arthritis neck. History of Any Multi-Drug Resistant Organisms: None Reported Past Surgical History: Hernia Repair, Tonsillectomy Additional Past Surgical History / Comment(s): Ventral hernia surgery x2, cyst removed R cheek, skin lesions removed L chin/L side of neck. COLONOSCOPY, EGD Past Anesthesia/Blood Transfusion Reactions: Family History of Problems w/ Anesthesia, Postoperative Nausea & Vomiting (PONV) Additional Past Anesthesia/Blood Transfusion Reaction / Comment(s): Pt has PONV. Mother had a hard time coming out of anesthesia "real Groggy for a couple days afterward" Past Psychological History: No Psychological Hx Reported Smoking Status: Former smoker Past Alcohol Use History: None Reported Past Drug Use History: Marijuana - Past Family History Mother Family Medical History: CVA/TIA Additional Family Medical History / Comment(s): Aorta transplant, TIAs. Mother is living. Father Family Medical History: Myocardial Infarction ([place]) Additional Family Medical History / Comment(s): Father is living. He had a [place] at the age of 60yrs. General Exam Limitations: no limitations General appearance: alert, in no apparent distress Respiratory exam: Present: normal lung sounds bilaterally Cardiovascular Exam: Present: regular rate, normal rhythm GI/Abdominal exam: Present: soft, tenderness (Tenderness to palpation of the left lower quadrant and umbilical region. Umbilical hernia without overlying skin changes. No pain out of proportion upon palpation.) Neurological exam: Present: alert, oriented X3 Skin exam: Present: warm, dry Course Vital Signs 06/03/23 06/03/23 06/03/23 09:19 10:40 12:03 Temperature 98.1 F Pulse Rate 66 67 74 Respiratory 18 18 18 Rate Blood Pressure 112/73 104/75 99/72 O2 Sat by Pulse 97 94 L 96 Oximetry Medical Decision Making - Medical Decision Making Was pt. sent in by a medical professional or institution (, PA, STOCK BROKER, urgent care, hospital, or half-way...) When possible be specific @ -No Did you speak to anyone other than the patient for history (EMS, parent, family, police, friend...)? What history was obtained from this source @ -No Did you review nursing and triage notes (agree or disagree)? Why? @ -I reviewed and agree with nursing and triage notes Were old charts reviewed (outside hosp., previous admission, EMS record, old EKG, old radiological studies, urgent care reports/EKG's, half-way records)? Report findings @ -No old charts were reviewed Differential Diagnosis (chest pain, altered mental status, abdominal pain women, abdominal pain men, vaginal bleeding, weakness, fever, dyspnea, syncope, headache, dizziness, GI bleed, back pain, seizure, CVA, palpatations, mental health, musculoskeletal)? @ -Differential Abdominal Pain Men: Appendicitis, cholecystitis, diverticulosis, ischemic bowel, pancreatitis, hepatitis, UTI, gastroenteritis, AAA, incarcerated hernia, bowel obstruction, constipation, inflammatory bowel, hepatitis, peptic ulcer disease, splenic infarction, perforated viscus, testicular torsion, this is not meant to be an all-inclusive list EKG interpreted by me (3pts min.). @ -As above X-rays interpreted by me (1pt min.). @ -None done CT interpreted by me (1pt min.). @ -Contrast of the abdomen pelvis showed some strangulated fat however no strangulated bowel. Also evidence of colitis. U/S interpreted by me (1pt. min.). @ -None done What testing was considered but not performed or refused? (CT, X-rays, U/S, labs)? Why? @ -None What meds were considered but not given or refused? Why? @ -None Did you discuss the management of the patient with other professionals (professionals i.e. , PA, STOCK BROKER, lab, RT, psych nurse, clinical social work aide, program schedule clerk, teacher, retirement officer, case therapist)? Give summary @ -No Was smoking cessation discussed for >3mins.? @ -No Was critical care preformed (if so, how long)? @ -No Were there social determinants of health that impacted care today? How? (Homelessness, low income, unemployed, alcoholism, drug addiction, transportation, low edu. Level, literacy, decrease access to med. care, senior care, rehab)? @ -No Was there de-escalation of care discussed even if they declined (Discuss DNR or withdrawal of care, Hospice)? DNR status @ -No What co-morbidities impacted this encounter? (DM, HTN, Smoking, COPD, CAD, Cancer, CVA, ARF, Chemo, Hep., AIDS, mental health diagnosis, sleep apnea, morbid obesity)? @ -None Was patient admitted / discharged? Hospital course, mention meds given and route, prescriptions, significant lab abnormalities, going to OR and other pertinent info. @ -Discharge. Laboratory studies significant for a white count of 13.[address] abdomen and pelvis showed some strangulated fat however no strangulated bowel also evidence of colitis. At this time patient's vital signs stable, afebrile. She will be discharged home with Augmentin for colitis and referral to Dr. Obrien who he saw prior for hernia repair. Discharged home in stable condition. Discussed return precautions with patient who verbalizes agreement. Undiagnosed new problem with uncertain prognosis? @ -No Drug Therapy requiring intensive monitoring for toxicity (Heparin, Nitro, Insulin, Cardizem)? @ -No Were any procedures done? @ -No Diagnosis/symptom? @ -Umbilical hernia, colitis Acute, or Chronic, or Acute on Chronic? @ -Acute on chronic, acute Uncomplicated (without systemic symptoms) or Complicated (systemic symptoms)? @ -Uncomplicated Side effects of treatment? @ -No Exacerbation, Progression, or Severe Exacerbation? @ -No Poses a threat to life or bodily function? How? (Chest pain, [place], [place], pneumonia, PE, COPD, DKA, ARF, appy, cholecystitis, CVA, Diverticulitis, Homicidal, Suicidal, threat to staff... and all critical care pts) @ -No - Lab Data Result diagrams: 06/03/23 10:36 06/03/23 10:36 Lab Results 06/03/23 06/03/23 Range/Units 10:36 10:36 WBC 13.2 H (3.8-10.6) k/uL RBC 4.15 L (4.30-5.90) m/uL Hgb 13.4 (13.0-17.5) gm/dL Hct 38.6 L (39.0-53.0) % MCV 92.9 (80.0-100.0) fL MCH 32.4 (25.0-35.0) pg MCHC 34.8 (31.0-37.0) g/dL RDW 12.5 (11.5-15.5) % Plt Count 204 (150-450) k/uL MPV 8.5 Neutrophils % 77 % Lymphocytes % 13 % Monocytes % 6 % Eosinophils % 2 % Basophils % 0 % Neutrophils # 10.2 H (1.3-7.7) k/uL Lymphocytes # 1.7 (1.0-4.8) k/uL Monocytes # 0.8 (0-1.0) k/uL Eosinophils # 0.3 (0-0.7) k/uL Basophils # 0.0 (0-0.2) k/uL Sodium 137 (137-145) mmol/L Potassium 3.8 (3.5-5.1) mmol/L Chloride 104 (98-107) mmol/L Carbon Dioxide 26 (22-30) mmol/L Anion Gap 7 mmol/L BUN 17 (9-20) mg/dL Creatinine 0.85 (0.66-1.25) mg/dL Est GFR (CKD-EPI)AfAm >90 (>60 ml/min/1.73 sqM) Est GFR (CKD-EPI)NonAf >90 (>60 ml/min/1.73 sqM) Glucose 104 H (74-99) mg/dL Calcium 8.6 (8.4-10.2) mg/dL Total Bilirubin 0.4 (0.2-1.3) mg/dL AST 20 (17-59) U/L ALT 15 (4-49) U/L Alkaline Phosphatase 71 (38-126) U/L Total Protein 6.7 (6.3-8.2) g/dL Albumin 3.9 (3.5-5.0) g/dL Amylase 45 (30-110) U/L Lipase 79 (23-300) U/L Disposition Clinical Impression: Umbilical hernia, Colitis Disposition: HOME SELF-CARE Condition: Good Instructions (If sedation given, give patient instructions): Umbilical Hernia (ED), Colitis (ED) Additional Instructions: Please return to the Emergency Department if symptoms worsen or any other concerns. Is patient prescribed a controlled substance at d/c from ED?: No Referrals: None,Stated [Primary Care Provider] - 1-2 days Time of Disposition: 12:11
[2023-06-03 10:50] LABS: Basophils % (A) 0 %; Eosinophils # (A) 0.3 k/uL (0-0.7); Eosinophils % (A) 2 %; HCT 38.6 % (39.0-53.0); HGB 13.4 gm/dL (13.0-17.5); Lymphocytes # (A) 1.7 k/uL (1.0-4.8); Lymphocytes % (A) 13 %; MCH 32.4 pg (25.0-35.0); MCHC 34.8 g/dL (31.0-37.0); MCV 92.9 fL (80.0-100.0); Mean Platelet Volume 8.5; Monocytes # (A) 0.8 k/uL (0-1.0); Monocytes % (A) 6 %; Neutrophils # (A) 10.2 k/uL (1.3-7.7); Neutrophils % (A) 77 %; Platelet Count 204 k/uL (150-450); RBC 4.15 m/uL (4.30-5.90); RDW 12.5 % (11.5-15.5); WBC 13.2 k/uL (3.8-10.6)
[2023-06-03 11:02] LABS: ALT 15 U/L (4-49); AST 20 U/L (17-59); African American GFR (CKD) >90 (>60 ml/min/1.73 sqM); Albumin 3.9 g/dL (3.5-5.0); Alkaline Phosphatase 71 U/L (38-126); Amylase 45 U/L (30-110); Anion Gap 7 mmol/L; Blood Urea Nitrogen 17 mg/dL (9-20); Calcium 8.6 mg/dL (8.4-10.2); Carbon Dioxide 26 mmol/L (22-30); Chloride 104 mmol/L (98-107); Glucose 104 mg/dL (74-99); Lipase 79 U/L (23-300); Non-African American GFR(CKD) >90 (>60 ml/min/1.73 sqM); Potassium 3.8 mmol/L (3.5-5.1); Sodium 137 mmol/L (137-145); Total Bilirubin 0.4 mg/dL (0.2-1.3); Total Protein 6.7 g/dL (6.3-8.2)
--- NOTE | 2023-06-03 11:26 | CT ---
EXAMINATION TYPE: CT abdomen pelvis w con DATE OF EXAM: 06/03/2023 COMPARISON: 12/21/2019 HISTORY: h/o hernia, left sided pain CT DLP: 889.5 mGycm CONTRAST: CT scan of the abdomen and pelvis is performed without Oral Contrast and with IV Contrast, patient in jected with 100 mL of Isovue 300. FINDINGS: LUNG BASES-: No visible nodule. No infiltrate. LIVER/GB: No calcified gallstones. No space occupying hepatic lesion. Biliary tree is of normal ca liber. PANCREAS: No inflammation. No distinct mass. SPLEEN: No splenic enlargement. No lesion seen. ADRENALS: No nodule. No thickening. KIDNEYS/BLADDER: No hydronephrosis. No nephrolithiasis. No distinct renal mass. Urinary bladder g rossly unremarkable. BOWEL: Normal appendix. Normal bowel caliber. There is bowel wall thickening involving the descendin g colon which may reflect infectious, inflammatory or ischemic colitis. GENITAL ORGANS: No gross abnormality. LYMPH NODES: No greater than 1cm abdominal or pelvic lymph nodes are appreciated. AORTA: No significant abnormality. OSSEOUS STRUCTURES: No significant abnormality is seen. OTHER: There is a midline fat-containing umbilical hernia measuring 6.5 x 4.2 x 4.2 cm there is mild stranding of the fat within the hernia sac which could reflect strangulated fat. Bilateral containing inguinal hernias are also seen. IMPRESSION: 1. Nonspecific colitis involving the descending colon. 2.There is a midline fat-containing umbilical hernia measuring 6.5 x 4.2 x 4.2 cm there is mild stran ding of the fat within the hernia sac which could reflect strangulated fat.
[2023-06-03] MEDS ORDERED: HYDROmorphone 0.5 MG/0.5 ML SYRINGE IVP STA (11:55)
[2023-06-03 12:27] VITALS: BP 108/74; PULSE 76
== END 2023-06-03 12:37 | disposition home or self-care (01) ==
LOC: EC 09:02
DX: K42.9 Umbilical hernia without obstruction or gangrene (principal); K52.9 Noninfective gastroenteritis and colitis, unspecified; I10 Essential (primary) hypertension; K21.9 Gastro-esophageal reflux disease without esophagitis; F12.90 Cannabis use, unspecified, uncomplicated; Z87.891 Personal history of nicotine dependence; Z79.899 Other long term (current) drug therapy; Z88.5 Allergy status to narcotic agent
CPT/HCPCS: 36415; 80053; 82150; 83690; 85025; 74177; 99284; 96374; 96375; 96361; J1885; J1170; Q9967

== ENCOUNTER 2024-12-20 19:40 | Outpatient (CLI) | payer OTHER ==
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
== END 2024-12-21 05:40 | disposition home or self-care (01) ==
LOC: 3 N SLEEP 19:40
PROVIDERS: ATTEND Internal Medicine Critical Care Medicine
DX: G47.23 Circadian rhythm sleep disorder, irregular sleep wake type (principal); F43.10 Post-traumatic stress disorder, unspecified; F41.9 Anxiety disorder, unspecified; G89.29 Other chronic pain; G43.909 Migraine, unspecified, not intractable, without status migrainosus; K57.90 Diverticulosis of intestine, part unspecified, without perforation or abscess without bleeding; G56.00 Carpal tunnel syndrome, unspecified upper limb; M19.90 Unspecified osteoarthritis, unspecified site; F32.A Depression, unspecified; F12.90 Cannabis use, unspecified, uncomplicated; K64.9 Unspecified hemorrhoids; J30.2 Other seasonal allergic rhinitis; K44.9 Diaphragmatic hernia without obstruction or gangrene; Z87.891 Personal history of nicotine dependence; Z87.828 Personal history of other (healed) physical injury and trauma; Z88.5 Allergy status to narcotic agent
CPT/HCPCS: 95810